=== PATIENT | male | born 1945 | race Caucasian/White ===

== ENCOUNTER 2020-05-20 09:41 | Outpatient (REF) | payer MEDICARE, SELFPAY ==
[2020-05-20 10:54] LABS: MANUAL DIFF FLAG NO
[2020-05-20 11:01] LABS: Basophils Absolute Auto 0.1 X10*3/uL (0.0-0.2); Basophils Percent Auto 0.6 % (0-2); Eosinophils Absolute Auto 0.2 X10*3/uL (0.0-0.4); Eosinophils Percent Auto 2.2 % (0-4); Hematocrit 51.8 % (42-52); Imm Gran Abs Auto 0.03 X10*3/uL (0.00-0.03); Imm Gran Pct Auto 0.3 % (0.0-0.4); Lymphocytes Absolute Auto 1.8 X10*3/uL (1.2-4.9); Lymphocytes Percent Auto 20.4 % (20-40); Mean Corpuscular HGB Conc 30.9 g/dl (31.0-36.0); Mean Corpuscular Hemoglobin 29.8 pg (27.0-33.0); Mean Corpuscular Volume 96.5 fL (80-98); Mean Platelet Volume 11.5 fL (9.4-12.4); Monocytes Absolute Auto 0.6 X10*3/uL (0.1-1.2); Monocytes Percent Auto 6.5 % (2-11); Neutrophils Absolute Auto 6.2 X10*3/uL (2.0-8.3); Platelet Count 226 X10*3/uL (160-400); Red Blood Count 5.37 X10*6/uL (4.60-5.80); White Blood Count 8.9 X10*3/uL (4.8-10.8)
[2020-05-20 11:25] LABS: Alanine Aminotransferase 27 U/L (0-40); Albumin Level 3.8 g/dL (3.5-5.0); Alkaline Phosphatase 84 U/L (39-117); Anion Gap 16 (12-20); Aspartate Amino Transferase 21 U/L (5-37); Bilirubin Total 0.5 mg/dL (0.0-1.0); Blood Urea Nitrogen 10 mg/dL (9-16); Calcium 8.7 mg/dL (8.4-10.2); Carbon Dioxide 31 mmol/L (22-29); Chloride 98 mmol/L (96-108); Estimated Glomerular Filt Rate > 60; Glucose Random 133 mg/dL (60-115); Potassium 4.5 mmol/L (3.3-5.1); Sodium 140 mmol/L (135-145); Total Protein 7.6 g/dL (6.5-8.0)
[2020-05-22 18:06] LABS: TS Negative Control Passed; TS Panel A 0; TS Panel B 0; TS Positive Control Passed; TSpotTB Negative (SeeBelow)
== END 2020-05-20 09:42 | disposition home or self-care (01) ==
LOC: HO.LAB 09:41
PROVIDERS: PCP Nurse Practitioner Family; Visit Provider Dermatology
DX: L40.0 Psoriasis vulgaris (principal)
CPT/HCPCS: 36415; 80053; 85025; 86481

== ENCOUNTER 2020-06-21 10:02 | Outpatient (REF) | payer MEDICARE, SELFPAY ==
[2020-06-21 11:51] LABS: Alanine Aminotransferase 33 U/L (0-40); Albumin Level 3.8 g/dL (3.5-5.0); Alkaline Phosphatase 91 U/L (39-117); Anion Gap 13 (12-20); Aspartate Amino Transferase 27 U/L (5-37); Bilirubin Total 0.6 mg/dL (0.0-1.0); Blood Urea Nitrogen 10 mg/dL (9-16); Calcium 8.8 mg/dL (8.4-10.2); Carbon Dioxide 34 mmol/L (22-29); Chloride 99 mmol/L (96-108); Cholesterol 170 mg/dL; Estimated Glomerular Filt Rate > 60; Glucose Fasting 143 mg/dL (60-99); HDL Cholesterol 36 mg/dL; LDL Cholesterol Calculated 116 mg/dl; Potassium 4.8 mmol/L (3.3-5.1); Sodium 141 mmol/L (135-145); Total Protein 7.7 g/dL (6.5-8.0); Triglycerides 93 mg/dL
[2020-06-21 12:15] LABS: Prostate Specific Antigen Scr 3.92 ng/mL (<0.05-4.0); TSH reflex Free T4 2.03 uIU/mL (0.32-4.0)
== END 2020-06-21 10:03 | disposition home or self-care (01) ==
LOC: HO.HMGCLDS 10:02
PROVIDERS: PCP Nurse Practitioner Family; Visit Provider Nurse Practitioner Family
DX: Z13.89 Encounter for screening for other disorder (principal)
CPT/HCPCS: 36415; 80053; 80061; 84153; 84443

== ENCOUNTER 2020-06-22 11:39 | Inpatient (IN) | payer MEDICARE, SELFPAY ==
[2020-06-22] VITALS (8 sets, daily range): BP systolic 105–145; BP diastolic 51–82; PULSE 75–96; RESP 18–26; TEMP 36.6–37; O2SAT 85–96; BMI 45.9; BMI 46.8
--- NOTE | ~2020-06-22 | XR_ITS ---
EXAMINATION: BILATERAL LOWER LEG X-RAY CLINICAL INFORMATION: Redness. Evaluate for osteomyelitis. COMPARISON: Bilateral knee x-ray January 2015 TECHNIQUE: 2 views of each lower leg FINDINGS: Bone alignment is normal. No fracture or dislocation or x-ray evidence of osteomyelitis is seen. The joint spaces are normal. Bilateral calcaneal spurs. Soft tissues are otherwise normal. XR/XR tibia fibula LT 2V IMPRESSION: No evidence of osteomyelitis.
--- NOTE | ~2020-06-22 | XR_ITS ---
EXAMINATION: XR CHEST CLINICAL INFORMATION: SOB. COMPARISON: None. TECHNIQUE: Frontal view of the chest was obtained. FINDINGS: The lungs are well expanded with plate-like atelectasis in the lingula. The heart size and pulmonary vascularity are normal. Bone windows reveal old healed fractures right posterior 5th and 6th ribs. No additional bony abnormality seen.. XR/XR chest 1V IMPRESSION: Plate-like atelectasis in the lingula. The lungs are otherwise clear. Mild cardiomegaly.
--- NOTE | ~2020-06-22 | CT_ITS ---
EXAMINATION: CT ANGIOGRAM OF THE CHEST WITH AND WITHOUT CONTRAST (CT PULMONARY ANGIOGRAM FOR PE) CLINICAL INFORMATION: Reason for Exam hypoxic. PE? Pneumonia? COMPARISON: Chest x-ray of same day TECHNIQUE: Prior to contrast administration, noncontrast localization images were obtained. Subsequently, multidetector volumetric imaging was performed from the thoracic inlet to below the diaphragms following the administration of 71 mL Omnipaque 350 intravenous contrast. No contrast reaction reported Sagittal, coronal, and MIP oblique sagittal reformatted images were obtained on the CT workstation, uploaded to PACS, and reviewed. This CT examination was performed using dose optimization techniques as appropriate, variously including the following: *Automated exposure control *Adjustment of mA and/or kV according to patient size (this includes techniques or standardized protocols for targeted exams where dose is matched to indication/reason for exam; i.e. extremities or head) *Use of iterative reconstruction technique Total exam dose-length product 489 mGy-cm FINDINGS: QUALITY OF STUDY/CONTRAST BOLUS: Satisfactory. PULMONARY ARTERIES: No central or segmental pulmonary emboli. THORACIC AORTA: No aneurysm or dissection. There is small amount of nonocclusive calcified plaque in the aortic arch. LUNG: Central airways are patent. There is some bronchial wall thickening seen without evidence of bronchiectasis. No confluent parenchymal disease. No suspicious lung nodules noted. PLEURA: No pleural effusion or pneumothorax. MEDIASTINUM: Normal heart size. No pericardial effusion. No hilar or mediastinal lymphadenopathy. No evidence of septal bowing or right heart strain. Coronary artery calcification present. CHEST WALL/AXILLA: No axillary or internal mammary lymphadenopathy. OSSEOUS STRUCTURES: No suspicious destructive bony lesion identified. There are old healed right rib fractures seen. There is multilevel degenerative disc disease seen with marginal spurring within the thoracic spine. UPPER ABDOMEN: Unremarkable. No reflux of contrast into the hepatic veins to suggest elevated right heart pressures. CT/CT angio chest PE protocol IMPRESSION: No evidence of acute pulmonary artery embolus. No evidence of thoracic aortic aneurysm or dissection. No confluent parenchymal disease identified. VTE: negative
--- NOTE | ~2020-06-22 | XR_ITS ---
EXAMINATION: BILATERAL LOWER LEG X-RAY CLINICAL INFORMATION: Redness. Evaluate for osteomyelitis. COMPARISON: Bilateral knee x-ray January 2015 TECHNIQUE: 2 views of each lower leg FINDINGS: Bone alignment is normal. No fracture or dislocation or x-ray evidence of osteomyelitis is seen. The joint spaces are normal. Bilateral calcaneal spurs. Soft tissues are otherwise normal. XR/XR tibia fibula RT 2V IMPRESSION: No evidence of osteomyelitis.
--- NOTE | ~2020-06-22 | US_ITS ---
EXAMINATION: US VENOUS ULTRASOUND WITH DOPPLER LOWER EXTREMITY, BILATERAL CLINICAL INFORMATION: Bilateral leg edema COMPARISON: September 21, 2008 TECHNIQUE: Ultrasound of the deep veins is performed from the hip to the calf with compression sonography and color and pulse Doppler assessment. Spectral analysis with color-flow imaging is performed. FINDINGS: RIGHT: There is normal venous compression and respiratory variation and augmented flow. The visualized common femoral vein, superficial femoral vein, profunda femoral vein, popliteal vein, and the trifurcation region shows no evidence of deep venous thrombosis. There is no significant popliteal fossa cyst. No popliteal artery aneurysm. LEFT: There is normal venous compression and respiratory variation and augmented flow. The visualized common femoral vein, superficial femoral vein, profunda femoral vein, popliteal vein, and the trifurcation region shows no evidence of deep venous thrombosis. There is no significant popliteal fossa cyst. No popliteal artery aneurysm. If the patient's symptoms persist, followup ultrasound in 5 days 7 days might be of value to exclude proximal propagation from a non-visualized calf vein. US/US venous duplex LE BI IMPRESSION: No acute DVT demonstrated in the bilateral lower extremity.
--- NOTE | 2020-06-22 12:20 | ECG_ITS ---
Test Reason : DIFF BREATHING Blood Pressure : / mmHG Vent. Rate : 089 BPM Atrial Rate : 089 BPM P-R Int : 178 ms QRS Dur : 128 ms QT Int : 388 ms P-R-T Axes : 058 245 -05 degrees QTc Int : 472 ms Normal sinus rhythm Right bundle branch block Inferior infarct , age undetermined Anterolateral infarct , age undetermined Abnormal ECG No previous ECGs available Referred By: Chi Blanco Electronically Signed By:CAMRYN BONNER MD
--- NOTE | 2020-06-22 12:38 | ED.GENADULT ---
HPI - General Adult General Chief complaint: Extremity Injury, Lower Stated complaint: leg infection Time Seen by Provider: 06/22/20 12:14 Source: patient Mode of arrival: ambulatory Limitations: no limitations History of Present Illness HPI narrative: Patient presents to ED for multiple complaints. Patient 1st complaint is lower extremity swelling with redness. Patient states left leg is more swollen with redness, warmth and pain. Patient states also having shortness of breath for the past 3 months. Patient states when he sleeps at night all the swelling he gets up gasping for breath. Patient states only sleep for 3 hours. Patient admits to being morbidly obese. Related Data Home Medications Medication Instructions Recorded Confirmed colchicine 0.6 mg tablet 0 mg PO 06/21/20 folic acid 1 mg tablet 1 mg PO DAILY 06/21/20 06/22/20 methotrexate sodium 2.5 mg tablet 20 mg PO QWEEK 06/21/20 06/22/20 Allergies Allergy/AdvReac Type Severity Reaction Status Date / Time aspirin Allergy Unknown Unverified 09/11/19 00:00 azithromycin Allergy Unknown Unverified 09/11/19 00:00 Review of Systems Review of Systems: Yes all other systems are reviewed and are negative Constitutional: Constitutional: Reports as per HPI and Reports no additional constitutional complaints Eyes: Eyes: Reports as per HPI and Reports no additional eye complaints ENT: Reports system reviewed and no additional complaints, except as documented and Reports as per HPI Cardiovascular: Cardiovascular: Reports as per HPI, Reports no additional cardiovascular complaints, Denies chest pain and Reports dyspnea Respiratory: Respiratory: Reports as per HPI, Reports no additional respiratory complaints and Reports dyspnea Gastrointestinal: Gastrointestinal: Reports as per HPI and Reports no additional gastrointestinal complaints Genitourinary: Genitourinary: Reports no additional male genitourinary complaints and Reports as per HPI Musculoskeletal: Musculoskeletal: Reports no additional musculoskeletal complaints and Reports as per HPI Comments: Left leg swelling and redness Neurologic: Reports system reviewed and no additional complaints, except as documented and Reports as per HPI Psychiatric: Psychiatric: Reports no additional psychiatric complaints and Reports as per HPI PMFSH Past Medical History Medical History (Updated 06/22/20 @ 20:36 by SOFÍA Hardin) Cellulitis Foot injury Gout High cholesterol Obesity SOB (shortness of breath) Surgical History (Updated 06/22/20 @ 11:51 by Nya eRyes) H/O abdominal surgery Social History Social History Alcohol intake: current Alcohol intake frequency: 0-2 drinks per day Smoking Status: Current every day smoker Use of substances other than those prescribed or required for medical reasons: No Advance Directives: No Advance Directives Information Provided: No Physical Exam Vital Signs: Vital Signs: Last Vital Signs Temp 98.6 F 06/22/20 17:59 Pulse 96 06/22/20 19:42 Resp 18 06/22/20 19:42 BP 122/82 06/22/20 19:42 Pulse Ox 94 06/22/20 19:42 Body Mass Index 45.9 Const: General: cooperative, healthy appearing, comfortable, no acute distress, well developed, alert, awake and Physically active Orientation/consciousness: patient oriented x3 HENMT: Head: Yes normal to inspection, Yes No palpable skull fracture present, Yes normocephalic, Yes atraumatic and Yes abrasion Eyes: General: appearance normal, both eyes and all related structures Neck: Neck: Yes normal visual inspection, Yes full ROM, Yes no lymphadenopathy, Yes no meningeal signs, Yes trachea midline, Yes supple and No tender Chest: Chest palpation & inspection: normal inspection of the chest and normal palpation of entire chest wall Resp: Effort & Inspection: normal respiratory effort and able to speak in complete sentences Auscultation: clear to auscultation bilaterally Cardio: Jugular venous distension: no JVD Heart sounds: S1 normal heart sound present and S2 normal heart sound present GI: Inspection: Yes normal to inspection and No abdominal wall ecchymosis Palpation (GI): Soft to palpation, not firm, nontender, no guarding and not rigid : General: No CVA tenderness and Yes no CVA tenderness Back/Spine/Pelvis: Back: no CVA tenderness, No CVA tenderness and No back tenderness Skin: Other: Psoriasis vulgaris General skin exam: no rashes or lesions noted and elasticity normal Neuro: General: patient oriented x3, no meningeal signs and CN's II-XI intact bilaterally Cranial nerves: Yes CN's II-XII intact bilaterally Extrem: Other: Left lower extremity: Positive for redness warmth and tenderness on anterior aspect of left leg. Left leg is swollen. Negative for calf tenderness. Vascular/Neuro/motor exam intact Right lower extremity; positive for redness/warmth/tenderness also on the right leg. Defer calf tenderness. Vascular/stenosis motor exam intact Psych: Appearance: grossly normal, well kempt and not disheveled Course Course Course Narrative: Lower extremities both indicate cellulitis. Will do labs including ESR CRP. Will do lactic and blood culture. Will send patient for chest x-ray and COVID-19 swab. Will do bilateral lower extremity ultrasounds. Patient is on 3 L oxygen at 90%. Patient high candidate for CTA to see if there is PE or pneumonia. Chest x-ray ordered. EKG negative for STEMI. Reevaluation(s) Reevaluation #1: Patient's lower extremity x-rays negative for osteomyelitis or blood clots. COVID swab came back negative. Patient does not have elevated white blood cell count. Patient had elevated ESR/CRP. Reason for chest CT to see patient has pneumonia to see which antibiotic to cover for pneumonia and skin infection. Patient will be admitted. Reevaluation #2: Chest CT negative for PE or pneumonia. Troponin negative. BNP does not indicate CHF. No reason why patient is hypoxic. COVID cell came back negative. Patient accepted by hospitalist for admission for cellulitis bilaterally of extremities. Dr. Beal recommended ABG. ABG was ordered. Waiting for results. Patient not septic. Time: 20:35 Medical Decision Making MDM Narrative Medical decision making narrative: Hypoxia. Cellulitis Lab Data Result diagrams: 06/22/20 12:44 06/22/20 12:43 Labs: Lab Results 06/22/20 06/22/20 06/22/20 Range/Units 12:43 12:43 12:43 WBC (4.8-10.8) X10*3/uL RBC (4.60-5.80) X10*6/uL Hgb (14.0-18.0) g/dl Hct (42-52) % MCV (80-98) fL MCH (27.0-33.0) pg MCHC (31.0-36.0) g/dl RDW (11.0-16.0) % Plt Count (160-400) X10*3/uL MPV (9.4-12.4) fL Immature Gran % (Auto) (0.0-0.4) % Neut % (Auto) (45-73) % Lymph % (Auto) (20-40) % [place] % (Auto) (2-11) % Eos % (Auto) (0-4) % Baso % (Auto) (0-2) % Lymph # (Auto) (1.2-4.9) X10*3/uL [place] # (Auto) (0.1-1.2) X10*3/uL Eos # (Auto) (0.0-0.4) X10*3/uL Baso # (Auto) (0.0-0.2) X10*3/uL Abs Immat Gran (auto) (0.00-0.03) X10*3/uL Absolute Neuts (auto) (2.0-8.3) X10*3/uL Absolute Nucleated RBC (0.0-0.012) X10*3/uL Nucleated RBC % (auto) (0.0-0.2) /100WBC ESR 16 H (0-15) MM/HR PT 13.7 H (10.8-13.0) SEC INR 1.2 H (0.9-1.1) APTT 32.4 (24.1-38.0) SEC Sodium 140 (135-145) mmol/L Potassium 4.4 (3.3-5.1) mmol/L Chloride 101 (96-108) mmol/L Carbon Dioxide 33 H (22-29) mmol/L Anion Gap 10 L (12-20) BUN 10 (9-16) mg/dL Creatinine 0.80 (0.5-1.4) mg/dL Estim Creat Clear Calc 101.1 Estimated GFR > 60 Random Glucose 185 H D (60-115) mg/dL Lactic Acid (0.5-2.0) mmol/L Calcium 8.5 (8.4-10.2) mg/dL Ferritin (20-250) ng/mL Total Bilirubin 0.4 (0.0-1.0) mg/dL AST 25 (5-37) U/L ALT 32 (0-40) U/L Alkaline Phosphatase 84 (39-117) U/L Lactate Dehydrogenase 172 (118-273) U/L Troponin I High Sens (<3.5-35.0) ng/L C-Reactive Protein 4.00 H (< or = 0.50) mg/dL B-Natriuretic Peptide (<100) pg/mL Total Protein 7.0 (6.5-8.0) g/dL Albumin 3.5 (3.5-5.0) g/dL Procalcitonin ng/mL Coronavirus (PCR) (Negative) Influenza Type A (PCR) (Negative) Influenza Type B (PCR) (Negative) RSV RNA Qual (PCR) (Negative) 06/22/20 06/22/20 06/22/20 Range/Units 12:43 12:43 12:43 WBC (4.8-10.8) X10*3/uL RBC (4.60-5.80) X10*6/uL Hgb (14.0-18.0) g/dl Hct (42-52) % MCV (80-98) fL MCH (27.0-33.0) pg MCHC (31.0-36.0) g/dl RDW (11.0-16.0) % Plt Count (160-400) X10*3/uL MPV (9.4-12.4) fL Immature Gran % (Auto) (0.0-0.4) % Neut % (Auto) (45-73) % Lymph % (Auto) (20-40) % [place] % (Auto) (2-11) % Eos % (Auto) (0-4) % Baso % (Auto) (0-2) % Lymph # (Auto) (1.2-4.9) X10*3/uL [place] # (Auto) (0.1-1.2) X10*3/uL Eos # (Auto) (0.0-0.4) X10*3/uL Baso # (Auto) (0.0-0.2) X10*3/uL Abs Immat Gran (auto) (0.00-0.03) X10*3/uL Absolute Neuts (auto) (2.0-8.3) X10*3/uL Absolute Nucleated RBC (0.0-0.012) X10*3/uL Nucleated RBC % (auto) (0.0-0.2) /100WBC ESR (0-15) MM/HR PT (10.8-13.0) SEC INR (0.9-1.1) APTT (24.1-38.0) SEC Sodium (135-145) mmol/L Potassium (3.3-5.1) mmol/L Chloride (96-108) mmol/L Carbon Dioxide (22-29) mmol/L Anion Gap (12-20) BUN (9-16) mg/dL Creatinine (0.5-1.4) mg/dL Estim Creat Clear Calc Estimated GFR Random Glucose (60-115) mg/dL Lactic Acid 1.4 (0.5-2.0) mmol/L Calcium (8.4-10.2) mg/dL Ferritin 62 (20-250) ng/mL Total Bilirubin (0.0-1.0) mg/dL AST (5-37) U/L ALT (0-40) U/L Alkaline Phosphatase (39-117) U/L Lactate Dehydrogenase Cancelled (118-273) U/L Troponin I High Sens 9.2 (<3.5-35.0) ng/L C-Reactive Protein (< or = 0.50) mg/dL B-Natriuretic Peptide 48 (<100) pg/mL Total Protein (6.5-8.0) g/dL Albumin (3.5-5.0) g/dL Procalcitonin ng/mL Coronavirus (PCR) (Negative) Influenza Type A (PCR) (Negative) Influenza Type B (PCR) (Negative) RSV RNA Qual (PCR) (Negative) 06/22/20 06/22/20 06/22/20 Range/Units 12:43 12:44 12:44 WBC 8.6 (4.8-10.8) X10*3/uL RBC 5.24 (4.60-5.80) X10*6/uL Hgb 15.6 (14.0-18.0) g/dl Hct 50.8 (42-52) % MCV 96.9 (80-98) fL MCH 29.8 (27.0-33.0) pg MCHC 30.7 L (31.0-36.0) g/dl RDW 14.5 (11.0-16.0) % Plt Count 214 (160-400) X10*3/uL MPV 10.5 (9.4-12.4) fL Immature Gran % (Auto) 0.2 (0.0-0.4) % Neut % (Auto) 70.4 (45-73) % Lymph % (Auto) 18.8 L (20-40) % [place] % (Auto) 7.6 (2-11) % Eos % (Auto) 2.5 (0-4) % Baso % (Auto) 0.5 (0-2) % Lymph # (Auto) 1.6 (1.2-4.9) X10*3/uL [place] # (Auto) 0.7 (0.1-1.2) X10*3/uL Eos # (Auto) 0.2 (0.0-0.4) X10*3/uL Baso # (Auto) 0.0 (0.0-0.2) X10*3/uL Abs Immat Gran (auto) 0.02 (0.00-0.03) X10*3/uL Absolute Neuts (auto) 6.1 (2.0-8.3) X10*3/uL Absolute Nucleated RBC 0.000 (0.0-0.012) X10*3/uL Nucleated RBC % (auto) 0.0 (0.0-0.2) /100WBC ESR (0-15) MM/HR PT (10.8-13.0) SEC INR (0.9-1.1) APTT (24.1-38.0) SEC Sodium (135-145) mmol/L Potassium (3.3-5.1) mmol/L Chloride (96-108) mmol/L Carbon Dioxide (22-29) mmol/L Anion Gap (12-20) BUN (9-16) mg/dL Creatinine (0.5-1.4) mg/dL Estim Creat Clear Calc Estimated GFR Random Glucose (60-115) mg/dL Lactic Acid (0.5-2.0) mmol/L Calcium (8.4-10.2) mg/dL Ferritin (20-250) ng/mL Total Bilirubin (0.0-1.0) mg/dL AST (5-37) U/L ALT (0-40) U/L Alkaline Phosphatase (39-117) U/L Lactate Dehydrogenase (118-273) U/L Troponin I High Sens (<3.5-35.0) ng/L C-Reactive Protein (< or = 0.50) mg/dL B-Natriuretic Peptide (<100) pg/mL Total Protein (6.5-8.0) g/dL Albumin (3.5-5.0) g/dL Procalcitonin 0.05 ng/mL Coronavirus (PCR) NEGATIVE (Negative) Influenza Type A (PCR) NEGATIVE (Negative) Influenza Type B (PCR) NEGATIVE (Negative) RSV RNA Qual (PCR) NEGATIVE (Negative) ECG Data Interpretation: Normal sinus rhythm. Right bundle-branch block. Ventricular rate 89. Pr interval 178. QRS 128. QTC 472. Negative STEMI Discharge Plan Discharge Clinical Impression: Hypoxia, Cellulitis Patient Disposition: Admitted As Inpatient
[2020-06-22 12:55] LABS: MANUAL DIFF FLAG NO
[2020-06-22 12:56] LABS: Basophils Percent Auto 0.5 % (0-2); Eosinophils Absolute Auto 0.2 X10*3/uL (0.0-0.4); Eosinophils Percent Auto 2.5 % (0-4); Hematocrit 50.8 % (42-52); Hemoglobin 15.6 g/dl (14.0-18.0); Imm Gran Abs Auto 0.02 X10*3/uL (0.00-0.03); Imm Gran Pct Auto 0.2 % (0.0-0.4); Lymphocytes Absolute Auto 1.6 X10*3/uL (1.2-4.9); Lymphocytes Percent Auto 18.8 % (20-40); Mean Corpuscular HGB Conc 30.7 g/dl (31.0-36.0); Mean Corpuscular Hemoglobin 29.8 pg (27.0-33.0); Mean Corpuscular Volume 96.9 fL (80-98); Mean Platelet Volume 10.5 fL (9.4-12.4); Monocytes Absolute Auto 0.7 X10*3/uL (0.1-1.2); Monocytes Percent Auto 7.6 % (2-11); Neutrophils Absolute Auto 6.1 X10*3/uL (2.0-8.3); Neutrophils Percent Auto 70.4 % (45-73); Platelet Count 214 X10*3/uL (160-400); Red Blood Count 5.24 X10*6/uL (4.60-5.80); Red Cell Distribution Width 14.5 % (11.0-16.0); White Blood Count 8.6 X10*3/uL (4.8-10.8)
[2020-06-22 13:02] LABS: INTERNATIONAL NORM RATIO 1.2 (0.9-1.1); Prothrombin Time 13.7 SEC (10.8-13.0)
[2020-06-22 13:05] LABS: Partial Thromboplastin Time 32.4 SEC (24.1-38.0)
[2020-06-22 13:19] LABS: Lactic Acid 1.4 mmol/L (0.5-2.0)
[2020-06-22 13:24] LABS: Alanine Aminotransferase 32 U/L (0-40); Albumin Level 3.5 g/dL (3.5-5.0); Alkaline Phosphatase 84 U/L (39-117); Anion Gap 10 (12-20); Aspartate Amino Transferase 25 U/L (5-37); Bilirubin Total 0.4 mg/dL (0.0-1.0); Blood Urea Nitrogen 10 mg/dL (9-16); Calcium 8.5 mg/dL (8.4-10.2); Carbon Dioxide 33 mmol/L (22-29); Chloride 101 mmol/L (96-108); Creatinine Clr Calc Pharmacy 101.1; Estimated Glomerular Filt Rate > 60; Glucose Random 185 mg/dL (60-115); Lactate Dehydrogenase 172 U/L (118-273); Potassium 4.4 mmol/L (3.3-5.1); Sodium 140 mmol/L (135-145)
[2020-06-22 13:30] LABS: B Type Natriuretic Peptide 48 pg/mL (<100); Troponin-I High Sensitivity 9.2 ng/L (<3.5-35.0)
[2020-06-22 13:37] LABS: Influenza A PCR NEGATIVE (Negative); Influenza B PCR NEGATIVE (Negative); Resp Syncy Virus RNA Qual PCR NEGATIVE (Negative); SARS COV2 PCR INHOUSE NEGATIVE (Negative)
[2020-06-22 13:43] LABS: Erythrocyte Sedimentation Rate 16 MM/HR (0-15)
[2020-06-22 13:45] LABS: Procalcitonin 0.05 ng/mL
[2020-06-22 14:08] LABS: Ferritin 62 ng/mL (20-250)
[2020-06-22] MEDS: Piperacillin Sodium/Tazobactam 3.375 GM in 0.9 % Sodium Chloride 50 ML IV (17:28)
[2020-06-22] MEDS: vancomycin HCL 1,500 MG in 0.9 % Sodium Chloride 500 ML 333.33 MG IV (17:55)
--- NOTE | 2020-06-22 20:04 | P.HPHOSP_ITS ---
History of Present Illness Date of Service: 06/22/20 Chief Complaint: Leg Swelling/redness 74-year-old male with a past medical history of hyperlipidemia, obesity, history of hearing loss, Psoriasis on methotrexate presented to the hospital with a chief complaint of bilateral leg pain redness and swelling over the past 3 days more on the left side. Also complains of shortness of breath for few days. Patient reports that he is not able to sleep well during the night and wakes up multiple times and feels tired during the daytime. Denies any cough or chest pain. Denies any palpitations headaches numbness tingling or focal weakness. Denies any GI or symptoms. Denies any fall or trauma. Review of all other systems is negative except mentioned above ER course: Per ER team patient noted to have bilateral lower extremity pain redness and swelling more on the left side; ultrasound showed no evidence of DVT. Patient was given vanc and Zosyn for cellulitis. Also noted patient was hypoxic to 84% on room air lungs are clear on examination no wheezing noticed. Patient was placed on supplemental oxygen at 5 L saturating at 93%. CT showed no evidence of PE or parenchymal disease. No evidence of fluid overload. Admitted to the hospital for further management. [facility] Medical History (Updated 06/23/20 @ 10:11 by Bryan Sales MD) Cellulitis Diabetes Fatty liver Foot injury Gout High cholesterol Mild bibasilar atelectasis Morbid obesity Obesity JACKIE (obstructive sleep apnea) SOB (shortness of breath) Surgical History H/O abdominal surgery Social History Household Members: Spouse Housing: House Do you presently have visiting nurse or other home services: No Alcohol intake: current Alcohol intake frequency: 0-2 drinks per day Smoking Status: Current every day smoker Smoked in Last 30 Days: Yes Patient Interested in Nicotine Replacement: No Patient Given Instructions on How to Stop Smoking: Yes Date Education Initiated: 06/23/20 Second Hand Smoke Exposure: Yes Use of substances other than those prescribed or required for medical reasons: No Currently Displaying Signs/Symptoms of Drug Intoxication Withdrawal: No Have you been hit, kicked, punched, or otherwise hurt by someone within the past year? If so, by whom?: No Do you feel safe in your current relationship?: No Is there a partner from a previous relationship who is making you feel unsafe now?: No Are you made to feel afraid or neglected: No Advance Directives: No Advance Directives Information Provided: No Advance Directives on File: No Do you have thoughts of harming others: None Do you have a plan to hurt others: No Plan Recently lost weight without trying: No service: No Current occupational status: retired Meds Allergies Allergy/AdvReac Type Severity Reaction Status Date / Time aspirin Allergy Unknown Unverified 09/11/19 00:00 azithromycin Allergy Unknown Unverified 09/11/19 00:00 Active Medications: Current Medications Generic Name Dose Route Start Last Admin Trade Name Freq PRN Reason Stop Dose Admin Acetaminophen 650 mg 06/22/20 19:16 Acetaminophen 325 Mg Tablet PO Q6H PRN Pain, Mild (Pain Scale 1-3) Docusate Sodium 100 mg 06/22/20 19:16 Docusate Sodium 100 Mg Capsule PO DAILY PRN Constipation Enoxaparin Sodium 40 mg 06/22/20 21:00 Enoxaparin Sodium 40 Mg/0.4 Ml Syringe SUBCUT Q24H SINA Vancomycin HCl 1,000 mg/ 270 mls @ 270 mls/hr 06/23/20 07:00 Sodium Chloride IV Q12H SINA Levalbuterol HCl 1.25 mg 06/22/20 20:00 Levalbuterol Hcl 1.25 Mg/0.5 Ml Vial.Neb INHALE RQ4H WHILE AWAKE SINA Morphine Sulfate 1 mg 06/22/20 19:19 Morphine Sulfate 4 Mg/Ml Cartridge IVPUSH Q4H PRN Pain, Severe (Pain Scale 7-10) Pharmacy Consult 1 each 06/22/20 19:20 Consult Rx Vancomycin Dosing MISCELLANE DAILY PRN Consult order Senna 17.2 mg 06/22/20 19:16 Sennosides 8.6 Mg Tablet PO BEDTIME PRN Constipation Sodium Chloride 3 ml 06/23/20 00:00 0.9 % Sodium Chloride Flush 3 Ml Syringe IVFLUSH QSHIFT [facility] Home Medications Medication Instructions Recorded Confirmed Last Taken Type colchicine 0.6 mg tablet 0 mg PO 06/21/20 Unknown History folic acid 1 mg tablet 1 mg PO DAILY 06/21/20 06/22/20 Unknown History methotrexate sodium 2.5 mg tablet 20 mg PO QWEEK 06/21/20 06/22/20 Unknown History Physical Exam Vital Signs and Narrative: Vital Signs: Last Vital Signs Temp 98.6 F 06/22/20 17:59 Pulse 96 06/22/20 19:42 Resp 18 06/22/20 19:42 BP 122/82 06/22/20 19:42 Pulse Ox 94 06/22/20 19:42 Body Mass Index 45.9 Gen: Appears be in no acute distress HEENT: NCAT, Moist mucosa. Pulmonary: Vesicular breath sounds, fair air entry CVS: Normal S1-S2 Abdomen: BS+, Soft, Nontender Extremities: Warm well perfused Neuro: Alert and awake. Results Labs CBC and Chem 7: 06/23/20 05:43 06/23/20 05:43 Labs: Laboratory Results - last 24 hr 06/22/20 06/22/20 06/22/20 12:43 12:43 12:43 MCV MCH MCHC RDW Plt Count MPV Immature Gran % (Auto) Neut % (Auto) Lymph % (Auto) [place] % (Auto) Eos % (Auto) Baso % (Auto) Lymph # (Auto) [place] # (Auto) Eos # (Auto) Baso # (Auto) Abs Immat Gran (auto) Absolute Neuts (auto) Absolute Nucleated RBC Nucleated RBC % (auto) ESR 16 H PT 13.7 H INR 1.2 H APTT 32.4 Anion Gap 10 L Estim Creat Clear Calc 101.1 Estimated GFR > 60 Random Glucose 185 H D Lactic Acid Calcium 8.5 Ferritin Total Bilirubin 0.4 AST 25 ALT 32 Alkaline Phosphatase 84 Lactate Dehydrogenase 172 Troponin I High Sens C-Reactive Protein 4.00 H B-Natriuretic Peptide Total Protein 7.0 Albumin 3.5 Procalcitonin Coronavirus (PCR) Influenza Type A (PCR) Influenza Type B (PCR) RSV RNA Qual (PCR) 06/22/20 06/22/20 06/22/20 12:43 12:43 12:43 MCV MCH MCHC RDW Plt Count MPV Immature Gran % (Auto) Neut % (Auto) Lymph % (Auto) [place] % (Auto) Eos % (Auto) Baso % (Auto) Lymph # (Auto) [place] # (Auto) Eos # (Auto) Baso # (Auto) Abs Immat Gran (auto) Absolute Neuts (auto) Absolute Nucleated RBC Nucleated RBC % (auto) ESR PT INR APTT Anion Gap Estim Creat Clear Calc Estimated GFR Random Glucose Lactic Acid 1.4 Calcium Ferritin 62 Total Bilirubin AST ALT Alkaline Phosphatase Lactate Dehydrogenase Cancelled Troponin I High Sens 9.2 C-Reactive Protein B-Natriuretic Peptide 48 Total Protein Albumin Procalcitonin Coronavirus (PCR) Influenza Type A (PCR) Influenza Type B (PCR) RSV RNA Qual (PCR) 06/22/20 06/22/20 06/22/20 12:43 12:44 12:44 MCV 96.9 MCH 29.8 MCHC 30.7 L RDW 14.5 Plt Count 214 MPV 10.5 Immature Gran % (Auto) 0.2 Neut % (Auto) 70.4 Lymph % (Auto) 18.8 L [place] % (Auto) 7.6 Eos % (Auto) 2.5 Baso % (Auto) 0.5 Lymph # (Auto) 1.6 [place] # (Auto) 0.7 Eos # (Auto) 0.2 Baso # (Auto) 0.0 Abs Immat Gran (auto) 0.02 Absolute Neuts (auto) 6.1 Absolute Nucleated RBC 0.000 Nucleated RBC % (auto) 0.0 ESR PT INR APTT Anion Gap Estim Creat Clear Calc Estimated GFR Random Glucose Lactic Acid Calcium Ferritin Total Bilirubin AST ALT Alkaline Phosphatase Lactate Dehydrogenase Troponin I High Sens C-Reactive Protein B-Natriuretic Peptide Total Protein Albumin Procalcitonin 0.05 Coronavirus (PCR) NEGATIVE Influenza Type A (PCR) NEGATIVE Influenza Type B (PCR) NEGATIVE RSV RNA Qual (PCR) NEGATIVE Imaging Radiologist's Impressions: Impressions Chest X-Ray 06/22/20 12:20 IMPRESSION: Plate-like atelectasis in the lingula. The lungs are otherwise clear. Mild cardiomegaly. Venous Duplex 06/22/20 12:20 IMPRESSION: No acute DVT demonstrated in the bilateral lower extremity. Chest CTA 06/22/20 13:50 IMPRESSION: No evidence of acute pulmonary artery embolus. No evidence of thoracic aortic aneurysm or dissection. No confluent parenchymal disease identified. VTE: negative Tibia/Fibula X-Ray 06/22/20 13:50 IMPRESSION: No evidence of osteomyelitis. Tibia/Fibula X-Ray 06/22/20 13:50 IMPRESSION: No evidence of osteomyelitis. Assessment and Plan (1) Shortness of breath: Status: Acute 74-year-old male with a past medical history of hyperlipidemia, obesity, hearing impairment, gout, psoriasis on methotrexate presented to the hospital with the complaint of bilateral leg pain redness and swelling and shortness of breath. Noted to have cellulitis. Bilateral lower extremity cellulitis: Continue IV vancomycin. Duplex negative for DVT. Id consult. Hypoxia: Patient currently saturating 93-95% on supplemental oxygen at 5 L of nasal cannula. Not in respiratory distress. Lung sounds are clear. nebs p.r.n.. CT scan showed no evidence of pulmonary embolism, lung disease or fluid overload. Question CHF versus JACKIE versus pulmonary hypertension vs methotrexate related Will obtain echocardiogram. Pulmonary consult for further recommendations Recommended outpatient sleep studies and pulmonary function test. EKG nonischemic. Troponin negative. Cycle cardiac enzymes. Monitor on telemetry. Continuous pulse ox. Will also obtain hemoglobin A1c, lipid profile, TSH. History of psoriasis: Hold home methotrexate for now until further input from pulmonology. DVT prophylaxis: Lovenox Code status: Full code
[2020-06-22 21:36] LABS: Thyroid Stimulating Hormone 1.87 uIU/mL (0.32-4.0)
[2020-06-22] MEDS: Enoxaparin Sodium 40 MG/0.4 ML SYRINGE SUBCUT (21:40)
--- NOTE | 2020-06-22 22:52 | PC.NURSE ---
REPORT GIVEN TO FLOOR. PT IN NAD. PT RESTING, WAKES TO VOICE AND DENIES COMPLAINTS AT THIS TIME.
[2020-06-23] VITALS (10 sets, daily range): BP systolic 109–151; BP diastolic 6–87; PULSE 75–94; RESP 16–18; TEMP 36.4–37.2; O2SAT 85–94
[2020-06-23] MEDS: 0.9 % Sodium Chloride Flush 3 ML SYRINGE IVFLUSH ×3 (01:39→20:39)
[2020-06-23 06:37] LABS: MANUAL DIFF FLAG NO
[2020-06-23 06:52] LABS: Basophils Percent Auto 0.5 % (0-2); Eosinophils Absolute Auto 0.2 X10*3/uL (0.0-0.4); Eosinophils Percent Auto 2.8 % (0-4); Hematocrit 49.2 % (42-52); Hemoglobin 14.9 g/dl (14.0-18.0); Imm Gran Abs Auto 0.02 X10*3/uL (0.00-0.03); Imm Gran Pct Auto 0.3 % (0.0-0.4); Lymphocytes Absolute Auto 1.3 X10*3/uL (1.2-4.9); Lymphocytes Percent Auto 16.9 % (20-40); Mean Corpuscular HGB Conc 30.3 g/dl (31.0-36.0); Mean Corpuscular Hemoglobin 29.8 pg (27.0-33.0); Mean Corpuscular Volume 98.4 fL (80-98); Mean Platelet Volume 11.1 fL (9.4-12.4); Monocytes Absolute Auto 0.6 X10*3/uL (0.1-1.2); Monocytes Percent Auto 7.1 % (2-11); Neutrophils Absolute Auto 5.7 X10*3/uL (2.0-8.3); Neutrophils Percent Auto 72.4 % (45-73); Platelet Count 191 X10*3/uL (160-400); Red Cell Distribution Width 14.3 % (11.0-16.0); White Blood Count 7.9 X10*3/uL (4.8-10.8)
[2020-06-23] MEDS: vancomycin HCL 1,000 MG in 0.9 % Sodium Chloride 250 ML 270 MG IV (06:54)
[2020-06-23 07:27] LABS: Cholesterol 149 mg/dL; HDL Cholesterol 30 mg/dL; LDL Cholesterol Calculated 98 mg/dl; Triglycerides 106 mg/dL
[2020-06-23 07:29] LABS: Anion Gap 14 (12-20); Blood Urea Nitrogen 8 mg/dL (9-16); Calcium 8.1 mg/dL (8.4-10.2); Carbon Dioxide 30 mmol/L (22-29); Chloride 100 mmol/L (96-108); Creatinine Clr Calc Pharmacy 107.7; Estimated Glomerular Filt Rate > 60; Glucose Random 137 mg/dL (60-115); Potassium 4.9 mmol/L (3.3-5.1); Sodium 139 mmol/L (135-145)
[2020-06-23 07:52] LABS: Estimated Average Glucose 192 mg/dL; Hemoglobin A1c % 8.3 %
--- NOTE | 2020-06-23 08:00 | CA_ITS ---
Transthoracic Echocardiogram Patient (Last, First, Middle): Cody Moran L Gender: Male Date of : 1945 Age: 74 Procedure Date: 06/23/2020 Procedure Type: Transthoracic Echocardiogram Location: [facility] [place] Height: 165.1 cm Weight: 127.46 kg BSA: 2.29 m2 Heart Rate: bpm BP: 109 / 55 mmHg Pet Care Attendant: ASIA Campo MD: Channing Beal MD Teachers' Assistant: Driss Moulton MD Symptoms: ?CHF/Puilm HTN; p/w Hypoxia Study Quality: Technically Difficult/contrast ECG Rhythm: Sinus Conclusions: - 1. Technically extremely limited study despite use of definity contrast 2. Mildly reduced LV ejection fraction 45-50% with impaired relaxation filling pattern 3. Remainder of the cardiac chambers and valvular function not well evaluated on this study Findings Procedure Information Contrast agent, definity, is being given per protocol without apparent complications. Left Ventricle The left ventricle was not well visualized. Normal left ventricular cavity size. The left ventricular systolic function is mildly decreased. The visually estimated ejection fraction is between 45-50%. There is no evidence of regional wall motion abnormalities. Spectral Doppler is indicative of an impaired relaxation filling pattern. E/E prime ratio is between 8 and 15 consistent with indeterminate filling pressures. Right Ventricle The right ventricle was not well visualized. Atria The left atrium was not well visualized. Interatrial shunt cannot be excluded. The right atrium was not well visualized. Aortic Valve The aortic valve was not well visualized. There is no aortic valve stenosis. There is no aortic valve regurgitation. Mitral Valve The mitral valve was not well visualized. There is no mitral valve stenosis. Pulmonic Valve The pulmonic valve was not well visualized. Tricuspid Valve The tricuspid valve was not well visualized. The right ventricular systolic pressure is not calculated. Great Vessels The aorta was not well visualized. The pulmonary artery was not well visualized. Venous The inferior vena cava was not well visualized. Pericardium/Pleural The pericardium was not well visualized. Prior Study Comparison No significant change compared to prior study dated: 05/10/2017. Measurements 2D Linear Measurements IVSd: 1.09 0.6-0.9/0.6-1.0 cm LVIDd: 5.12 3.9-5.3/4.2-5.9 cm LVIDd Index: 2.24 2.4-3.2/2.2-3.1 cm/m2 LVIDs: 4.06 2.0-3.6 cm LVPWd: 1.07 0.7-1.1 cm Ao Root: 3.50 2.1-3.5 cm LA Diam: 3.30 2.7-3.8/3.0-4.0 cm LAIDs Index: 1.44 1.5-2.3 cm/m2 LV Mass: 261.68 67-162/88-224 g LV Mass Index: 114.27 43-95/49-115 g/m2 LVOT Diam: 2.20 3.0+(-)1.3 cm 2D Systolic Function EF 4C: 52.30 >55% EF 2C: 47.40 >55% EF BiP: 50.00 >55% Mitral Valve MV Pk E: 0.82 MV PK A: 0.99 MV Decel Time: 254.00 E/A: 0.80 E'Lateral: 8.32 E'Medial: 7.06 E/E' Med: 11.60 E/E' Lat: 9.90 PHT: 74.00 MVA PHT: 2.97 Decel Vance: 3.23 Aortic Valve AoV Pk Tj: 1.31 AoV Mn Tj: 0.93 AoV VTI: 0.27 AoV Pk Grad: 7.00 Aov Mn Grad: 4.00 ANANTH Cont.VTI: 2.99 LVOT LVOT Pk Tj: 0.98 LVOT Mn Tj: 0.64 LVOT VTI: 0.21 LVOT Pk Grad: 4.00 LVOT Mn Grad: 2.00 LVOT Diam: 2.20 LVOT Area: 3.80 Diastolic Function MV Pk E: 0.82 MV Pk A: 0.99 E/A: 0.80 E'Medial: 7.06 E/E' Med: 11.60 E' Laterial: 8.32 E/E' Lat: 9.90 Great Vessels Aorta Ao Root-2D: 3.50 2.0-3.7 cm Ao Asc: 3.80 2.1-3.4 cm Updated in Other Vendor System with Status of Final Driss Moulton MD electronically signed on 06/23/2020 12:27:10 PM with status of Final
--- NOTE | 2020-06-23 09:28 | PM.CNPUL ---
History of Present Illness History of Present Illness Consult date: 06/23/20 Reason for consult: hypoxemia Chief complaint: Hypoxia Narrative: This 74 years old gentleman has been admitted mainly because of cellulitis of his lower extremities. He was noted to have low O2 sat. Denies fever chills chest pain wheezing or cough. Patient does not have any past history of chronic lung disease. He has been morbidly obese for whole adult life. He claims that he cannot sleep on his back and usually sleeps on the right side. He did do express the the fact that he wakes up every few hours during the night because of difficulty in breathing. He has never been evaluated for sleep apnea. In fact he such as simple man he does not even know what we were talking about. Patient is being treated for chronic rheumatoid arthritis and is on methotrexate 20 mg Q 1 week along with folic acid and colchicine tablets. He denies smoking. Review of Systems Eyes: Eyes: Reports no additional eye complaints ENT: Reports system reviewed and no additional complaints, except as documented Cardiovascular: Cardiovascular: Reports no additional cardiovascular complaints and Denies dyspnea Respiratory: Respiratory: Denies cough, Denies dyspnea and Denies wheezing Gastrointestinal: Gastrointestinal: Reports no additional gastrointestinal complaints Musculoskeletal: Musculoskeletal: Reports back pain and Reports arthralgias Integumentary/Breasts: Skin/Breast: Reports erythema (of both legs ) Neurologic: Reports system reviewed and no additional complaints, except as documented Endocrine: Endocrine: Reports other (gross obesity) Allergic/Immunologic: Allergic/Immunologic: Denies wheezing PMFSH Past Medical History Medical History (Updated 06/23/20 @ 09:43 by Junie Adame MD) Cellulitis Foot injury Gout High cholesterol Mild bibasilar atelectasis Morbid obesity Obesity JACKIE (obstructive sleep apnea) SOB (shortness of breath) Surgical History Surgical History H/O abdominal surgery Social History Social History Household Members: Spouse Housing: House Do you presently have visiting nurse or other home services: No Alcohol intake: current Alcohol intake frequency: 0-2 drinks per day Smoking Status: Current every day smoker Smoked in Last 30 Days: Yes Patient Interested in Nicotine Replacement: No Patient Given Instructions on How to Stop Smoking: Yes Date Education Initiated: 06/23/20 Second Hand Smoke Exposure: Yes Use of substances other than those prescribed or required for medical reasons: No Currently Displaying Signs/Symptoms of Drug Intoxication Withdrawal: No Have you been hit, kicked, punched, or otherwise hurt by someone within the past year? If so, by whom?: No Do you feel safe in your current relationship?: No Is there a partner from a previous relationship who is making you feel unsafe now?: No Are you made to feel afraid or neglected: No Advance Directives: No Advance Directives Information Provided: No Advance Directives on File: No Do you have thoughts of harming others: None Do you have a plan to hurt others: No Plan Recently lost weight without trying: No Meds Allergies Allergy/AdvReac Type Severity Reaction Status Date / Time aspirin Allergy Unknown Unverified 09/11/19 00:00 azithromycin Allergy Unknown Unverified 09/11/19 00:00 Active Medications: Current Medications Generic Name Dose Route Start Last Admin Trade Name Freq PRN Reason Stop Dose Admin Acetaminophen 650 mg 06/22/20 19:16 Acetaminophen 325 Mg Tablet PO Q6H PRN Pain, Mild (Pain Scale 1-3) Docusate Sodium 100 mg 06/22/20 19:16 Docusate Sodium 100 Mg Capsule PO DAILY PRN Constipation Enoxaparin Sodium 40 mg 06/22/20 21:00 06/22/20 21:40 Enoxaparin Sodium 40 Mg/0.4 Ml Syringe SUBCUT 40 mg Q24H SINA Administration Levalbuterol HCl 1.25 mg 06/22/20 20:00 06/23/20 07:37 Levalbuterol Hcl 1.25 Mg/0.5 Ml Vial.Neb INHALE 1.25 mg RQ4H WHILE AWAKE SINA Administration Morphine Sulfate 1 mg 06/22/20 19:19 Morphine Sulfate 4 Mg/Ml Cartridge IVPUSH Q4H PRN Pain, Severe (Pain Scale 7-10) Senna 17.2 mg 06/22/20 19:16 Sennosides 8.6 Mg Tablet PO BEDTIME PRN Constipation Sodium Chloride 3 ml 06/23/20 00:00 06/23/20 09:04 0.9 % Sodium Chloride Flush 3 Ml Syringe IVFLUSH Not Given QSHIFT [facility] Home Medications Medication Instructions Recorded Confirmed Last Taken Type colchicine 0.6 mg tablet 0 mg PO 06/21/20 Unknown History folic acid 1 mg tablet 1 mg PO DAILY 06/21/20 06/22/20 Unknown History methotrexate sodium 2.5 mg tablet 20 mg PO QWEEK 06/21/20 06/22/20 Unknown History Physical Exam Vital Signs: Vital Signs: Last Vital Signs Temp 97.6 F 06/23/20 07:43 Pulse 90 06/23/20 07:43 Resp 18 06/23/20 07:43 BP 151/87 H 06/23/20 07:43 Pulse Ox 91 L 06/23/20 04:00 Body Mass Index 46.8 Const: General: comfortable, no acute distress, alert and awake Orientation/consciousness: patient oriented x3 HENMT: Head: Yes normal to inspection General nose exam: No nasal polyps present and No nasal discharge present Face and sinus: Yes sinuses nontender Mouth: oropharynx abnormals (VERY CROWDED , MALLAMPATTI CLASS 4 ) Throat: Yes posterior oropharynx normal Eyes: General: appearance normal, both eyes and all related structures Neck: Neck: Yes normal visual inspection, Yes no lymphadenopathy, Yes trachea midline, Yes no JVD and Yes other (NECK SIZE= 19 ) Thyroid: Thyroid normal Chest: Chest palpation & inspection: normal inspection of the chest and abnormal palpation of chest wall (CHEST WALL IS VERY THICK ) Resp: Other: BREATH SOUNDS ARE DIMINISHED ON BOTH SIDES ESPECIALLY OVER THE BASILAR AREAS. SEEMS TO HAVE SMALL LUNG VOLUMES. NO ADVENTITIOUS SOUNDS ARE HEARD Auscultation: no crackles and no wheezes Cardio: Palpation: PMI not normal (NOT PALPABLE) Rate: regular rate Rhythm: regular rhythm Heart sounds: Gallop heart sound present and Murmur heart sound present GI: Palpation (GI): Soft to palpation, nontender, No hepatosplenomegaly present, no masses and Other GI palpation findings present (GROSSLY OBESE ABDOMEN) Auscultation: normal bowel sounds Back/Spine/Pelvis: Thoracic/Lumbar Spine: thoracic and lumbar spine normal to inspection Skin: Rashes: rashes noted (HAS THE REDNESS OF BOTH LEGS ESPECIALLY ON THE LEFT SIDE) Neuro: General: patient oriented x3 and no focal motor deficits Cranial nerves: Yes CN's II-XII intact bilaterally Extrem: General: Yes normal to inspection, Yes no calf tenderness and Yes venous stasis dermatitis (CHRONIC STASIS EDEMA WITH STASIS DERMATITIS AND ACUTE REDNESS OF THE SKIN ) Psych: Speech and movement: Normal speech and movement present Results Laboratory Findings CBC and BMP: 06/23/20 05:43 04/29/21 05:43 ABG, PT/INR, D-dimer: PT/INR, D-dimer PT 13.7 SEC (10.8-13.0) H 06/22/20 12:43 INR 1.2 (0.9-1.1) H 06/22/20 12:43 Abnormal lab findings: Abnormal Labs 06/22/20 06/22/20 06/22/20 12:43 12:43 12:43 MCV MCHC Lymph % (Auto) ESR 16 H PT 13.7 H INR 1.2 H Carbon Dioxide 33 H Anion Gap 10 L BUN Random Glucose 185 H D Calcium C-Reactive Protein 4.00 H 06/22/20 06/23/20 06/23/20 12:44 05:43 05:43 MCV 98.4 H MCHC 30.7 L 30.3 L Lymph % (Auto) 18.8 L 16.9 L ESR PT INR Carbon Dioxide 30 H Anion Gap BUN 8 L Random Glucose 137 H Calcium 8.1 L C-Reactive Protein Assessment and Plan (1) Morbid obesity: Problem details: THIS PATIENT HAS LIVED HIS WHOLE ADULT LIFE WITH MORBID OBESITY. AFTER THE TREATMENT OF HIS ACUTE CELLULITIS FOR WHICH HE IS ADMITTED, HE WOULD NEED TO GO ON A WEIGHT REDUCTION PROGRAM Status: Acute (2) Cellulitis: Problem details: CELLULITIS BOTH LOWER EXTREMITIES, BEING TREATED Status: Acute (3) Hypoxia: Problem details: HYPOXEMIA OF WHICH THE PATIENT WAS NOT AWARE OF IS MOST LIKELY DUE TO BIBASILAR ATELECTASIS AND RELATIVE HYPOVENTILATION. CTA OF THE CHEST DOES NOT SHOW ANY PULMONARY EMBOLISM AND ALSO DOES NOT SHOW ANY EVIDENCE OF INTERSTITIAL LUNG DISEASE. FOR THE TIME BEING KEEP HIM ON OXYGEN 1 OR 2 L/MINUTE TO KEEP O2 SAT ABOVE 90%. Status: Acute (4) JACKIE (obstructive sleep apnea): Problem details: CLINICALLY THIS PATIENT HAS TYPICAL FEATURES OF SLEEP APNEA WITH A ROUND FACE VERY SHORT NECK AND MALLAMPATI CLASS 4. HE WOULD NEED TO HAVE A QUICK SLEEP TEST OUTPATIENT AND THIS IS AN TO BE STARTED ON CPAP THERAPY Status: Acute (5) Mild bibasilar atelectasis: Problem details: THIS IS DUE TO HIS GROSS OBESITY AND HYPOVENTILATION OF THE LOWER LOBES, WILL START HIM ON INCENTIVE SPIROMETRY Status: Acute
[2020-06-23] MEDS: Furosemide 40 MG/4 ML VIAL IVPUSH ×2 (10:01→17:22)
--- NOTE | 2020-06-23 10:07 | HO.PM.IMPN ---
Subjective Subjective Date of Service: 06/23/20 Interval History: severeal weeks of bilateral lower extremity edema, no fevers, no chills chronic sob, orthopnea Cardiovascular Cardiovascular: Reports no additional cardiovascular complaints Respiratory Respiratory: Reports no additional respiratory complaints Physical Exam Vital Signs: Vital Signs: Last Vital Signs Temp 97.6 F 06/23/20 07:43 Pulse 90 06/23/20 07:43 Resp 18 06/23/20 07:43 BP 151/87 H 06/23/20 07:43 Pulse Ox 91 L 06/23/20 04:00 Body Mass Index 46.8 General: AO X 3, no acute distress, morbidly obese, thick neck, Resp: diminished CVS: S1,S2,RRR GI: soft, non tender, non distended Neuro: motor grossly intact Psych: appropriate affect ext: bilateral lower extremity edema with mild erythema, appears more venous stasis than cellulitic Objective Data Current Medications Generic Name Dose Route Start Last Admin Trade Name Freq PRN Reason Stop Dose Admin Acetaminophen 650 mg 06/22/20 19:16 Acetaminophen 325 Mg Tablet PO Q6H PRN Pain, Mild (Pain Scale 1-3) Docusate Sodium 100 mg 06/22/20 19:16 Docusate Sodium 100 Mg Capsule PO DAILY PRN Constipation Enoxaparin Sodium 40 mg 06/22/20 21:00 06/22/20 21:40 Enoxaparin Sodium 40 Mg/0.4 Ml Syringe SUBCUT 40 mg Q24H SINA Administration Insulin Human Lispro 0 unit 06/23/20 11:30 Insulin Lispro 100 Unit/Ml 3 Ml Vial SUBCUT QIDACHS SINA Protocol Levalbuterol HCl 1.25 mg 06/22/20 20:00 06/23/20 07:37 Levalbuterol Hcl 1.25 Mg/0.5 Ml Vial.Neb INHALE 1.25 mg RQ4H WHILE AWAKE SINA Administration Morphine Sulfate 1 mg 06/22/20 19:19 Morphine Sulfate 4 Mg/Ml Cartridge IVPUSH Q4H PRN Pain, Severe (Pain Scale 7-10) Senna 17.2 mg 06/22/20 19:16 Sennosides 8.6 Mg Tablet PO BEDTIME PRN Constipation Sodium Chloride 3 ml 06/23/20 00:00 06/23/20 09:04 0.9 % Sodium Chloride Flush 3 Ml Syringe IVFLUSH Not Given QSHIFT SINA Labs CBC & Chem 7: 06/23/20 05:43 06/23/20 05:43 Assessment and Plan (1) Diabetes: Status: Acute (2) Fatty liver: Status: Acute Assessment and Plan: 74M presented with sob and lower extremity edema and erythema lower extremity edema and erythema bilateral without systemic symptoms, highly doubt infectious, most likely venous stasis with stasis dermatitis follow up cultures will dc antibiotics IV lasix courtney wraps morbid obesity with likely undiagnosed JACKIE/OHS/restrictive lung disease complicated by acute hypoxic respiratory failure incentive spirometer outpatient sleep study/pulm follow up weight loss fatty liver probably LONG outpatient follow up DM a1c 8.1 patient denies DM, but mentioned doctors previously told him he had sugar in his legs probably not a new diagnosis, but not on meds will cover with insulin and start metformin at discharge
--- NOTE | 2020-06-23 10:16 | MHC.CM.PN ---
IMM 06/23/20 Male 74 DX HYPOXIA Primary language is Divehi Pt lives with . He is independent. DP Home with CPAP. CM will follow for any change in dc needs
[2020-06-23 10:19] LABS: VBG Base Excess 7.6 mmol/L; VBG HCO3 36 mmol/L (22-26); VBG pCO2 66 mmHg; VBG pH 7.34 (7.32-7.43); VBG pO2 41 mmHg
[2020-06-23 10:22] LABS: Venous Blood Gas Refer to POC result
[2020-06-23 11:18] LABS: Glucose, Whole Blood 296 mg/dL (60-115)
[2020-06-23] MEDS: Insulin Lispro 100 UNIT/ML 3 ML VIAL SUBCUT ×2 (11:23→20:39)
[2020-06-23 16:12] LABS: Glucose, Whole Blood 104 mg/dL (60-115)
--- NOTE | 2020-06-23 17:53 | PC.NURSE ---
Around 1200, patient's O2 SAT 85%; applied 3L of O2 via NC to achieve O2 SAT of 90%. Around 1600, patient's O2 SAT 88%; increased O2 to 5L, patient placed on continuous O2 monitoring, now satting 91%. Patient's legs wrapped with courtney bandages per hospitalist. Patient's A1c 8%, now a POC and on sliding scale. Patient refused to sit in recliner, but sitting on edge of bed frequently.
[2020-06-23 20:03] LABS: Glucose, Whole Blood 173 mg/dL (60-115)
[2020-06-23] MEDS: Enoxaparin Sodium 40 MG/0.4 ML SYRINGE SUBCUT (20:39)
[2020-06-24] VITALS (7 sets, daily range): BP systolic 100–150; BP diastolic 50–83; PULSE 80–99; RESP 18–24; TEMP 21.8–37.2; O2SAT 83–97
[2020-06-24 06:08] LABS: MANUAL DIFF FLAG NO
[2020-06-24 06:13] LABS: Basophils Percent Auto 0.5 % (0-2); Eosinophils Absolute Auto 0.3 X10*3/uL (0.0-0.4); Eosinophils Percent Auto 3.2 % (0-4); Hematocrit 48.5 % (42-52); Hemoglobin 14.9 g/dl (14.0-18.0); Imm Gran Abs Auto 0.02 X10*3/uL (0.00-0.03); Imm Gran Pct Auto 0.2 % (0.0-0.4); Lymphocytes Absolute Auto 1.7 X10*3/uL (1.2-4.9); Lymphocytes Percent Auto 20.5 % (20-40); Mean Corpuscular HGB Conc 30.7 g/dl (31.0-36.0); Mean Corpuscular Hemoglobin 30.2 pg (27.0-33.0); Mean Corpuscular Volume 98.2 fL (80-98); Mean Platelet Volume 10.7 fL (9.4-12.4); Monocytes Absolute Auto 0.6 X10*3/uL (0.1-1.2); Monocytes Percent Auto 7.2 % (2-11); Neutrophils Absolute Auto 5.6 X10*3/uL (2.0-8.3); Neutrophils Percent Auto 68.4 % (45-73); Platelet Count 198 X10*3/uL (160-400); Red Blood Count 4.94 X10*6/uL (4.60-5.80); Red Cell Distribution Width 14.4 % (11.0-16.0); White Blood Count 8.1 X10*3/uL (4.8-10.8)
[2020-06-24 06:52] LABS: Vancomycin Trough < 3.0 mcg/mL (10.0-20.0)
[2020-06-24 06:56] LABS: Alanine Aminotransferase 20 U/L (0-40); Albumin Level 3.3 g/dL (3.5-5.0); Alkaline Phosphatase 74 U/L (39-117); Anion Gap 12 (12-20); Aspartate Amino Transferase 17 U/L (5-37); Bilirubin Direct 0.2 mg/dL (0.0-0.5); Bilirubin Total 0.6 mg/dL (0.0-1.0); Blood Urea Nitrogen 12 mg/dL (9-16); Calcium 8.1 mg/dL (8.4-10.2); Carbon Dioxide 36 mmol/L (22-29); Chloride 97 mmol/L (96-108); Estimated Glomerular Filt Rate > 60; Glucose Fasting 136 mg/dL (60-99); Magnesium 4.9 mg/dL (1.6-2.6); Sodium 141 mmol/L (135-145); Total Protein 6.7 g/dL (6.5-8.0)
[2020-06-24 07:14] LABS: Glucose, Whole Blood 142 mg/dL (60-115)
[2020-06-24] MEDS: Furosemide 40 MG/4 ML VIAL IVPUSH ×2 (08:56→17:12)
[2020-06-24] MEDS: 0.9 % Sodium Chloride Flush 3 ML SYRINGE IVFLUSH ×2 (08:56→17:12)
--- NOTE | 2020-06-24 10:30 | P.CONCA_ITS ---
History of Present Illness History of Present Illness Date of Service: 06/24/20 Requesting physician: Bryan Sales Consult reason: other (Low ejection fraction echocardiogram) Chief complaint: Hypoxia Narrative: We were consulted to see Cody in cardiology consultation today as echocardiogram showed mildly reduced LV systolic function. Echocardiogram was performed as patient admitted with hypoxemia. Echocardiogram shows LVEF of 45- 50% with markedly limited study due to his body habitus with limited evaluation of cardiac valvular structure. Patient admitted with bilateral lower extremity cellulitis and on evaluation found to have hypoxemia. Subsequent workup pressure bilateral atelectasis and with his significant obesity, truncal, there is high likelihood of Pickwickian syndrome with pulmonary restriction. He has been required oxygen therapy. He gets short of breath with minimal activity. However he does not have any worsening leg edema. No clear orthopnea PND reported. No chest pain no other cardiac symptoms. Review of Systems Constitutional: Constitutional: Reports no additional constitutional complaints Cardiovascular: Cardiovascular: Denies chest pain, Denies lightheadedness, Denies Loss of Consciousness, Denies palpitations and Reports dyspnea on exertion Respiratory: Respiratory: Reports no additional respiratory complaints and Reports dyspnea on exertion Gastrointestinal: Gastrointestinal: Reports no additional gastrointestinal complaints Genitourinary: Genitourinary: Reports no additional male genitourinary complaints Neurologic: Reports system reviewed and no additional complaints, except as documented Endocrine: Endocrine: Reports no additional endocrine complaints and Denies p alpitations PMFSH Past Medical History Medical History Cellulitis Diabetes Fatty liver Foot injury Gout High cholesterol Mild bibasilar atelectasis Morbid obesity Obesity JACKIE (obstructive sleep apnea) SOB (shortness of breath) Surgical History Surgical History H/O abdominal surgery Social History Social History Household Members: Spouse Housing: House Do you presently have visiting nurse or other home services: No Alcohol intake: current Alcohol intake frequency: 0-2 drinks per day Smoking Status: Current every day smoker Smoked in Last 30 Days: Yes Patient Interested in Nicotine Replacement: No Patient Given Instructions on How to Stop Smoking: Yes Date Education Initiated: 06/23/20 Second Hand Smoke Exposure: Yes Use of substances other than those prescribed or required for medical reasons: No Currently Displaying Signs/Symptoms of Drug Intoxication Withdrawal: No Have you been hit, kicked, punched, or otherwise hurt by someone within the past year? If so, by whom?: No Do you feel safe in your current relationship?: No Is there a partner from a previous relationship who is making you feel unsafe now?: No Are you made to feel afraid or neglected: No Advance Directives: No Advance Directives Information Provided: No Advance Directives on File: No Do you have thoughts of harming others: None Do you have a plan to hurt others: No Plan Recently lost weight without trying: No service: No Current occupational status: retired Meds Allergies Allergy/AdvReac Type Severity Reaction Status Date / Time aspirin Allergy Unknown Unverified 09/11/19 00:00 azithromycin Allergy Unknown Unverified 09/11/19 00:00 Active Medications: Current Medications Generic Name Dose Route Start Last Admin Trade Name Freq PRN Reason Stop Dose Admin Acetaminophen 650 mg 06/22/20 19:16 Acetaminophen 325 Mg Tablet PO Q6H PRN Pain, Mild (Pain Scale 1-3) Docusate Sodium 100 mg 06/22/20 19:16 Docusate Sodium 100 Mg Capsule PO DAILY PRN Constipation Enoxaparin Sodium 40 mg 06/22/20 21:00 06/23/20 20:39 Enoxaparin Sodium 40 Mg/0.4 Ml Syringe SUBCUT 40 mg Q24H [facility] Administration Furosemide 40 mg 06/23/20 18:00 06/24/20 08:56 Furosemide 40 Mg/4 Ml Vial IVPUSH 40 mg BID@0900,1800 [facility] Administration Protocol Insulin Human Lispro 0 unit 06/23/20 11:30 06/24/20 07:22 Insulin Lispro 100 Unit/Ml 3 Ml Vial SUBCUT Not Given QIDACHS [facility] Protocol Levalbuterol HCl 1.25 mg 06/22/20 20:00 06/24/20 07:43 Levalbuterol Hcl 1.25 Mg/0.5 Ml Vial.Neb INHALE Not Given RQ4H WHILE AWAKE [facility] Morphine Sulfate 1 mg 06/22/20 19:19 Morphine Sulfate 4 Mg/Ml Cartridge IVPUSH Q4H PRN Pain, Severe (Pain Scale 7-10) Senna 17.2 mg 06/22/20 19:16 Sennosides 8.6 Mg Tablet PO BEDTIME PRN Constipation Sodium Chloride 3 ml 06/23/20 00:00 06/24/20 08:56 0.9 % Sodium Chloride Flush 3 Ml [facility]ringe [facility] Home Medications Medication Instructions Recorded Confirmed Last Taken Type colchicine 0.6 mg tablet 0 mg PO 06/21/20 Unknown History folic acid 1 mg tablet 1 mg PO DAILY 06/21/20 06/22/20 Unknown History methotrexate sodium 2.5 mg tablet 20 mg PO QWEEK 06/21/20 06/22/20 Unknown Histo ry Physical Exam Vital Signs: Vital Signs: Last Vital Signs Temp 96.8 F 06/24/20 07:03 Pulse 89 06/24/20 07:03 Resp 24 H 06/24/20 07:03 BP 128/80 06/24/20 07:03 Pulse Ox 88 L 06/24/20 07:03 Body Mass Index 46.8 Const: General: cooperative, comfortable and acute distress mild and respiratory (With minimal activity) Nutritional Appearance: obese morbidly obese Orientation/consciousness: patient oriented x3 HENMT: Head: Yes normocephalic and Yes atraumatic Neck: Neck: Yes trachea midline, Yes supple and Yes no JVD Resp: Effort & Inspection: normal respiratory effort Auscultation: no rales, no wheezes and diminished lung sounds Cardio: Jugular venous distension: no JVD Rate: regular rate Rhythm: regular rhythm Heart sounds: S1 normal heart sound present and S2 normal heart sound present Skin: General skin exam: no rashes or lesions noted Neuro: General: patient oriented x3 and no focal motor deficits Extrem: General: No clubbing, No cyanosis and Yes other (Lower extremity in wraps with no clear pitting edema) Results Labs and Meds Result diagrams: 06/24/20 05:32 06/24/20 05:32 Lab results: Laboratory Results - last 24 hr 06/23/20 06/23/20 06/23/20 11:12 15:59 19:57 WBC RBC Hgb Hct MCV MCH MCHC RDW Plt Count MPV Immature Gran % (Auto) Neut % (Auto) Lymph % (Auto) [place] % (Auto) Eos % (Auto) Baso % (Auto) Lymph # (Auto) [place] # (Auto) Eos # (Auto) Baso # (Auto) Abs Immat Gran (auto) Absolute Neuts (auto) Absolute Nucleated RBC Nucleated RBC % (auto) Sodium Potassium Chloride Carbon Dioxide Anion Gap BUN Creatinine Estim Creat Clear Calc Estimated GFR POC Glucose 296 H 104 173 H Fasting Glucose Calcium Magnesium Total Bilirubin Direct Bilirubin AST ALT Alkaline Phosphatase Total Protein Albumin Vancomycin Trough 06/24/20 06/24/20 06/24/20 05:32 05:32 05:32 WBC 8.1 RBC 4.94 Hgb 14.9 Hct 48.5 MCV 98.2 H MCH 30.2 MCHC 30.7 L RDW 14.4 Plt Count 198 MPV 10.7 Immature Gran % (Auto) 0.2 Neut % (Auto) 68.4 Lymph % (Auto) 20.5 [place] % (Auto) 7.2 Eos % (Auto) 3.2 Baso % (Auto) 0.5 Lymph # (Auto) 1.7 [place] # (Auto) 0.6 Eos # (Auto) 0.3 Baso # (Auto) 0.0 Abs Immat Gran (auto) 0.02 Absolute Neuts (auto) 5.6 Absolute Nucleated RBC 0.000 Nucleated RBC % (auto) 0.0 Sodium 141 Potassium 4.0 Chloride 97 Carbon Dioxide 36 H Anion Gap 12 BUN 12 Creatinine 0.89 Estim Creat Clear Calc 92.0 Estimated GFR > 60 POC Glucose Fasting Glucose 136 H Calcium 8.1 L Magnesium 4.9 H* Total Bilirubin 0.6 Direct Bilirubin 0.2 AST 17 ALT 20 Alkaline Phosphatase 74 Total Protein 6.7 Albumin 3.3 L Vancomycin Trough < 3.0 L 06/24/20 06:58 WBC RBC Hgb Hct MCV MCH MCHC RDW Plt Count MPV Immature Gran % (Auto) Neut % (Auto) Lymph % (Auto) [place] % (Auto) Eos % (Auto) Baso % (Auto) Lymph # (Auto) [place] # (Auto) Eos # (Auto) Baso # (Auto) Abs Immat Gran (auto) Absolute Neuts (auto) Absolute Nucleated RBC Nucleated RBC % (auto) Sodium Potassium Chloride Carbon Dioxide Anion Gap BUN Creatinine Estim Creat Clear Calc Estimated GFR POC Glucose 142 H Fasting Glucose Calcium Magnesium Total Bilirubin Direct Bilirubin AST ALT Alkaline Phosphatase Total Protein Albumin Vancomycin Trough Assessment and Plan (1) Cardiomyopathy: Status: Acute Patient noted to have mild LV systolic dysfunction by echocardiogram which was performed for hypoxemia. Clinically not in heart failure. Most likely cause of his low ejection fraction appears to be his obesity/under diagnose sleep apnea. He needs sleep study which can be done as an outpatient. He has high risk for developing heart failure in the future given his multiple risk factors, currently not in heart failure. Heart failure education should be provided. Does not need diuretic therapy. (2) Hypoxia: Problem details: HYPOXEMIA OF WHICH THE PATIENT WAS NOT AWARE OF IS MOST LIKELY DUE TO BIBASILAR ATELECTASIS AND RELATIVE HYPOVENTILATION. CTA OF THE CHEST DOES NOT SHOW ANY PULMONARY EMBOLISM AND ALSO DOES NOT SHOW ANY EVIDENCE OF INTERSTITIAL LUNG DISEASE. FOR THE TIME BEING KEEP HIM ON OXYGEN 1 OR 2 L/MINUTE TO KEEP O2 SAT ABOVE 90%. Status: Acute Hypoxemia, persistent appears to be secondary to pulmonary restrictive disease due to morbid obesity and bilateral atelectasis. Incentive spirometry and deep breathing exercise need to be pursued. A long run requires aggressive weight loss. May also have underlying obstructive sleep apnea may require CPAP/BiPAP therapy as outpatient. This was discussed with the patient. Will sign of the case. Thank you for allowing us to partake in his care
[2020-06-24 11:15] LABS: Glucose, Whole Blood 213 mg/dL (60-115)
[2020-06-24] MEDS: Insulin Lispro 100 UNIT/ML 3 ML VIAL SUBCUT ×2 (11:40→17:12)
--- NOTE | 2020-06-24 11:53 | PM.PNPUL ---
Subjective Subjective Date of Service: 06/24/20 Principal diagnosis: cELLULITIS OF LEGS / RESP.FAILURE Interval history: THIS 74 YEARS OLD GENTLEMAN IS BEING TREATED FOR ACUTE CELLULITIS OF HIS LEGS. HE ALSO HAS MORBID OBESITY AND FEATURES OF THE JACKIE/HYPOVENTILATION SYNDROME. VENOUS BLOOD GAS STUDY IS GROSSLY ABNORMAL, SHOWING PCO2 OF 66 CONSISTENT WITH CHRONIC HYPERCAPNIC RESPIRATORY FAILURE. Objective Data Labs CBC & Chem 7: 06/24/20 05:32 06/24/20 05:32 Labs: Laboratory Results - last 24 hr 06/23/20 06/23/20 06/24/20 15:59 19:57 05:32 WBC RBC Hgb Hct MCV MCH MCHC RDW Plt Count MPV Immature Gran % (Auto) Neut % (Auto) Lymph % (Auto) [place] % (Auto) Eos % (Auto) Baso % (Auto) Lymph # (Auto) [place] # (Auto) Eos # (Auto) Baso # (Auto) Abs Immat Gran (auto) Absolute Neuts (auto) Absolute Nucleated RBC Nucleated RBC % (auto) Sodium Potassium Chloride Carbon Dioxide Anion Gap BUN Creatinine Estim Creat Clear Calc Estimated GFR POC Glucose 104 173 H Fasting Glucose Calcium Magnesium Total Bilirubin Direct Bilirubin AST ALT Alkaline Phosphatase Total Protein Albumin Vancomycin Trough < 3.0 L 06/24/20 06/24/20 06/24/20 05:32 05:32 06:58 WBC 8.1 RBC 4.94 Hgb 14.9 Hct 48.5 MCV 98.2 H MCH 30.2 MCHC 30.7 L RDW 14.4 Plt Count 198 MPV 10.7 Immature Gran % (Auto) 0.2 Neut % (Auto) 68.4 Lymph % (Auto) 20.5 [place] % (Auto) 7.2 Eos % (Auto) 3.2 Baso % (Auto) 0.5 Lymph # (Auto) 1.7 [place] # (Auto) 0.6 Eos # (Auto) 0.3 Baso # (Auto) 0.0 Abs Immat Gran (auto) 0.02 Absolute Neuts (auto) 5.6 Absolute Nucleated RBC 0.000 Nucleated RBC % (auto) 0.0 Sodium 141 Potassium 4.0 Chloride 97 Carbon Dioxide 36 H Anion Gap 12 BUN 12 Creatinine 0.89 Estim Creat Clear Calc 92.0 Estimated GFR > 60 POC Glucose 142 H Fasting Glucose 136 H Calcium 8.1 L Magnesium 4.9 H* Total Bilirubin 0.6 Direct Bilirubin 0.2 AST 17 ALT 20 Alkaline Phosphatase 74 Total Protein 6.7 Albumin 3.3 L Vancomycin Trough 06/24/20 11:05 WBC RBC Hgb Hct MCV MCH MCHC RDW Plt Count MPV Immature Gran % (Auto) Neut % (Auto) Lymph % (Auto) [place] % (Auto) Eos % (Auto) Baso % (Auto) Lymph # (Auto) [place] # (Auto) Eos # (Auto) Baso # (Auto) Abs Immat Gran (auto) Absolute Neuts (auto) Absolute Nucleated RBC Nucleated RBC % (auto) Sodium Potassium Chloride Carbon Dioxide Anion Gap BUN Creatinine Estim Creat Clear Calc Estimated GFR POC Glucose 213 H Fasting Glucose Calcium Magnesium Total Bilirubin Direct Bilirubin AST ALT Alkaline Phosphatase Total Protein Albumin Vancomycin Trough Microbiology Microbiology Results: Microbiology 06/22/20 12:43 Blood - Venous Blood Culture - Preliminary No growth after 24 hours. 06/22/20 12:43 Blood - Venous Blood Culture - Preliminary No growth after 24 hours. Review of Systems Review of Systems Yes all other systems are reviewed and are negative Constitutional: Reports body ache(s), Reports chills, Reports fever(s) and Reports headache(s) Eyes: Reports as per HPI, Reports blurry vision, Reports irritation and Reports itchy eyes Reports system reviewed and no additional complaints, except as documented, Reports halitosis, Denies dysphagia, Reports vertigo, Reports headache(s), Denies epistaxis, Denies nasal congestion, Denies nasal discharge, Denies nasal obstruction and Denies sinus pain Cardiovascular: Denies chest pain, Denies rapid heart rate, Reports irregular heart rhythm, Denies dyspnea on exertion and Denies slow heart rate Respiratory: Reports as per HPI, Denies dyspnea on exertion, Denies stridor and Denies wheezing Gastrointestinal: Denies bloating, Denies change in bowel habits, Reports change in stool character, Denies dysphagia, Denies heartburn, Denies nausea and Denies vomiting Genitourinary: Denies urinary incontinence Reports vertigo and Reports headache(s) Hematologic/Lymphatic: Reports no additional hematologic/lymphatic complaints Allergic/Immunologic: Reports no additional allergic/immunologic complaints, Reports itchy eyes and Denies wheezing Physical Exam Vital Signs: Vital Signs: Last Vital Signs Temp 71.3 F L 06/24/20 11:15 Pulse 84 06/24/20 11:27 Resp 20 06/24/20 11:15 BP 100/52 L 06/24/20 11:15 Pulse Ox 90 L 06/24/20 11:15 Body Mass Index 46.8 Const: General: comfortable, no acute distress, alert and awake Orientation/consciousness: patient oriented x3 HENMT: Head: Yes normal to inspection General nose exam: No nasal polyps present and No nasal discharge present Face and sinus: Yes sinuses nontender Mouth: oropharynx abnormals (CROWDED, MALLAMPATI CLASS 4) Eyes: General: appearance normal, both eyes and all related structures Neck: Neck: Yes normal visual inspection, Yes no lymphadenopathy, Yes trachea midline, Yes no JVD and Yes other (VERY OBESE NECK SIZE 19 IN) Thyroid: Thyroid normal Chest: Other: VERY THICK CHEST WALL, NONTENDER Resp: Other: BREATH SOUNDS ARE VERY DISTANT, NO WHEEZES OR CREPS ARE HEARD Cardio: Palpation: normal PMI Rate: regular rate Rhythm: regular rhythm Heart sounds: no gallops and no murmurs GI: Palpation (GI): Soft to palpation, nontender, No hepatosplenomegaly present, no masses and Other GI palpation findings present (ABDOMEN IS GROSSLY OBESE AND PENDULOUS) Auscultation: normal bowel sounds Back/Spine/Pelvis: Thoracic/Lumbar Spine: thoracic and lumbar spine normal to inspection Skin: General skin exam: no rashes or lesions noted Neuro: General: patient oriented x3 and no focal motor deficits Cranial nerves: Yes CN's II-XII intact bilaterally Extrem: General: Yes normal to inspection, Yes no clubbing, cyanosis or edema, Yes no calf tenderness, No venous stasis dermatitis and Yes other (REDNESS OF BOTH LEGS ANTERIORLY WORSE ON THE LEFT SIDE) Psych: Speech and movement: Normal speech and movement present Assessment and Plan Assessment and plan (1) Mild bibasilar atelectasis: Problem details: THIS IS DUE TO HIS GROSS OBESITY AND HYPOVENTILATION OF THE LOWER LOBES, WILL START HIM ON INCENTIVE SPIROMETRY Status: Acute (2) Morbid obesity: Problem details: THIS PATIENT HAS LIVED HIS WHOLE ADULT LIFE WITH MORBID OBESITY. AFTER THE TREATMENT OF HIS ACUTE CELLULITIS FOR WHICH HE IS ADMITTED, HE WOULD NEED TO GO ON A WEIGHT REDUCTION PROGRAM Status: Acute (3) JACKIE (obstructive sleep apnea): Problem details: CLINICALLY THIS PATIENT HAS TYPICAL FEATURES OF SLEEP APNEA WITH A ROUND FACE VERY SHORT NECK AND MALLAMPATI CLASS 4. HE WOULD NEED TO HAVE A QUICK SLEEP TEST OUTPATIENT AND THIS IS AN TO BE STARTED ON CPAP THERAPY. VENOUS BGs PCO2 = 66 C/W CHRONIC HYPOVENTILATION SYNDROME . I SUGGEST THAT WE DO OVERNIGHT OXIMETRY RECORDING , ON O2 4 L/MT , AND SEE IF WE CAN QUALIFY HIM FOR BIPAP THERAPY Status: Acute (4) Hypoxia: Problem details: HYPOXEMIA OF WHICH THE PATIENT WAS NOT AWARE OF IS MOST LIKELY DUE TO BIBASILAR ATELECTASIS AND HYPOVENTILATION. FOR THE TIME BEING KEEP HIM ON OXYGEN WITH GOAL OF KEEPING O2 SAT 90 % OR ABOVE . CURRENTLY REQUIRING 5 L/MT , IT MAY BE CUT DOWN TO 4 L/MT Status: Acute Time Spent With Patient Time: Total time spent is greater than 50% in coordination of care (as documented) at patient's floor/unit and/or counseling patient: Time with patient: 25 - 35 minutes
--- NOTE | 2020-06-24 14:40 | MHC.CM.PN ---
DP Male 74 DX Hypoxia. DP home no services family transport. A home O2 eval may be required prior to discharge. He benefit from VNA. CM will follow to assess for a change in discharge needs.
--- NOTE | 2020-06-24 14:48 | P.F2F_ITS ---
Service Date Service Date: 06/24/20 Reasons for Services Reason for longterm: diabetic teaching, medication management, medication treatment and teach disease management Homebound: Leaving the home is medically contraindicated at this time without the asist of a device and/or another person due th the listed conditions above and below. Reason homebound: unsteady gait / fall risk, poor balance / fall risk and weakness related to hospital stay Certification: Based on the above findings, I certify that this patient is confined to the home and needs intermittent longterm care, physical therapy and/or speech therapy, or continues to need occupational therapy. The patient is under my care, and I have initiated the establishment of the plan of care. The patient will be followed by a physician who will periodically review the plan of care.
--- NOTE | 2020-06-24 14:48 | PM.DS ---
DS: Providers Provider Date of Service: 06/24/20 Date of admission: 06/22/20 19:16 Primary care physician: ISRRAEL Cerna Consults: 06/22/20 19:16 Consult to Pulmonology Routine Consulting Provider: Junie Adame Reason for consultation: Hypoxia;pt on methatrexate; ?JACKIE 06/22/20 19:20 Consult to Infectious Diseases Routine Consulting Provider: Fozia Young Reason for consultation: Cellulitis 06/23/20 13:22 Consult to Cardiology Routine Consulting Provider: Driss Moulton Reason for consultation: reduced EF on echo DS: Diagnosis Discharge Diagnosis (1) Mild bibasilar atelectasis: Status: Acute (2) Morbid obesity: Status: Acute (3) JACKIE (obstructive sleep apnea): Status: Acute Problem details: CLINICALLY THIS PATIENT HAS TYPICAL FEATURES OF SLEEP APNEA WITH A ROUND FACE VERY SHORT NECK AND MALLAMPATI CLASS 4. HE WOULD NEED TO HAVE A QUICK SLEEP TEST OUTPATIENT AND THIS IS AN TO BE STARTED ON CPAP THERAPY. VENOUS BGs PCO2 = 66 C/W CHRONIC HYPOVENTILATION SYNDROME . I SUGGEST THAT WE DO OVERNIGHT OXIMETRY RECORDING , ON O2 4 L/MT , AND SEE IF WE CAN QUALIFY HIM FOR BIPAP THERAPY (4) Hypoxia: Status: Acute Problem details: HYPOXEMIA OF WHICH THE PATIENT WAS NOT AWARE OF IS MOST LIKELY DUE TO BIBASILAR ATELECTASIS AND HYPOVENTILATION. FOR THE TIME BEING KEEP HIM ON OXYGEN WITH GOAL OF KEEPING O2 SAT 90 % OR ABOVE . CURRENTLY REQUIRING 5 L/MT , IT MAY BE CUT DOWN TO 4 L/MT (5) Cardiomyopathy: Status: Acute (6) Fatty liver: Status: Acute (7) Lower extremity edema: Status: Acute DS: Medications Discharge Medications Home Medications: Home Medications Medication Instructions Recorded Confirmed colchicine 0.6 mg tablet 0 mg PO 06/21/20 folic acid 1 mg tablet 1 mg PO DAILY 06/21/20 06/22/20 methotrexate sodium 2.5 mg tablet 20 mg PO QWEEK 06/21/20 06/22/20 Previous Rx's Medication Instructions Recorded furosemide [Lasix] 20 mg PO DAILY #30 tab 06/24/20 metformin 500 mg PO BID #60 tab 06/24/20 DS: Summary Hospital Course Hospital Course: Patient was admitted initially for suspicion of bilateral lower extremity cellulitis. On further evaluation this was deemed to be stasis dermatitis and antibiotics were discontinued, he was given IV Lasix and Martin wraps and dermatitis improved. Patient was noted to have acute hypoxic and hypercapnic respiratory failure likely due to OHS/obesity related restrictive lung disease. Echo showed a mildly reduced ejection fraction. ABG significant for hypercapnia. Recommendations were for patient to stay for overnight sleep study to qualify for BiPAP. However patient refused. He was assessed for home O2 and will require 6 L to maintain a saturation above 90. He will follow up with Pulmonary as outpatient to arrange BiPAP. Patient was also noted to have elevated A1c of 8.1. He was told in the past that he has sugar likely not a new diagnosis. He will be discharged with metformin. Patient strongly encouraged to lose weight. Time Spent with Patient Time attestation: Total time spent providing and/or coordinating discharge services: Discharge coordination time: Greater than 30 minutes Physical Exam Vital Signs: Vital Signs: Last Vital Signs Temp 71.3 F L 06/24/20 11:15 Pulse 84 06/24/20 11:27 Resp 20 06/24/20 11:15 BP 100/52 L 06/24/20 11:15 Pulse Ox 90 L 06/24/20 11:15 Body Mass Index 46.8 General: AO X 3, no acute distress Resp: diminished CVS: S1,S2,RRR GI: soft, non tender, non distended Neuro: motor grossly intact Psych: appropriate affect DS: Data Data Completed and Pending Labs on day of discharge: Laboratory Results - last 24 hr 06/23/20 06/23/20 06/24/20 15:59 19:57 05:32 WBC RBC Hgb Hct MCV MCH MCHC RDW Plt Count MPV Immature Gran % (Auto) Neut % (Auto) Lymph % (Auto) [place] % (Auto) Eos % (Auto) Baso % (Auto) Lymph # (Auto) [place] # (Auto) Eos # (Auto) Baso # (Auto) Abs Immat Gran (auto) Absolute Neuts (auto) Absolute Nucleated RBC Nucleated RBC % (auto) Sodium Potassium Chloride Carbon Dioxide Anion Gap BUN Creatinine Estim Creat Clear Calc Estimated GFR POC Glucose 104 173 H Fasting Glucose Calcium Magnesium Total Bilirubin Direct Bilirubin AST ALT Alkaline Phosphatase Total Protein Albumin Vancomycin Trough < 3.0 L 06/24/20 06/24/20 06/24/20 05:32 05:32 06:58 WBC 8.1 RBC 4.94 Hgb 14.9 Hct 48.5 MCV 98.2 H MCH 30.2 MCHC 30.7 L RDW 14.4 Plt Count 198 MPV 10.7 Immature Gran % (Auto) 0.2 Neut % (Auto) 68.4 Lymph % (Auto) 20.5 [place] % (Auto) 7.2 Eos % (Auto) 3.2 Baso % (Auto) 0.5 Lymph # (Auto) 1.7 [place] # (Auto) 0.6 Eos # (Auto) 0.3 Baso # (Auto) 0.0 Abs Immat Gran (auto) 0.02 Absolute Neuts (auto) 5.6 Absolute Nucleated RBC 0.000 Nucleated RBC % (auto) 0.0 Sodium 141 Potassium 4.0 Chloride 97 Carbon Dioxide 36 H Anion Gap 12 BUN 12 Creatinine 0.89 Estim Creat Clear Calc 92.0 Estimated GFR > 60 POC Glucose 142 H Fasting Glucose 136 H Calcium 8.1 L Magnesium 4.9 H* Total Bilirubin 0.6 Direct Bilirubin 0.2 AST 17 ALT 20 Alkaline Phosphatase 74 Total Protein 6.7 Albumin 3.3 L Vancomycin Trough 06/24/20 11:05 WBC RBC Hgb Hct MCV MCH MCHC RDW Plt Count MPV Immature Gran % (Auto) Neut % (Auto) Lymph % (Auto) [place] % (Auto) Eos % (Auto) Baso % (Auto) Lymph # (Auto) [place] # (Auto) Eos # (Auto) Baso # (Auto) Abs Immat Gran (auto) Absolute Neuts (auto) Absolute Nucleated RBC Nucleated RBC % (auto) Sodium Potassium Chloride Carbon Dioxide Anion Gap BUN Creatinine Estim Creat Clear Calc Estimated GFR POC Glucose 213 H Fasting Glucose Calcium Magnesium Total Bilirubin Direct Bilirubin AST ALT Alkaline Phosphatase Total Protein Albumin Vancomycin Trough Preliminary micro results at discharge 06/22/20 12:43 Blood Culture - Preliminary Blood - Venous No growth after 24 hours. 06/22/20 12:43 Blood Culture - Preliminary Blood - Venous No growth after 24 hours. Discharge Plan Discharge Patient Disposition: Home Health Service Discharge Diagnosis: pickiwickian syndrome, dm Referrals: Junie Adame MD [Physician] - 1 Week Wes Gilbert FNP-FRANK [Primary Care Provider] - 1 Week Discharge Medications: New metformin 500 mg tablet 500 mg PO BID Qty: 60 RF: 0 furosemide [Lasix] 20 mg tablet 20 mg PO DAILY Qty: 30 RF: 0 Continued methotrexate sodium 2.5 mg tablet 20 mg PO QWEEK RF: 0 folic acid 1 mg tablet 1 mg PO DAILY RF: 0 colchicine 0.6 mg tablet 0 mg PO RF: 0 Discharge Orders: Discharge Order (Routine); Ordered 06/24/20 Ordered By: Brayn Sales Diet: advance to usual diet Activity on Discharge: As tolerated Stand Alone Forms: Patient Portal Discharge page Care Plan Goals: recovery Health Concerns: morbid obesity, DM, hypoxia, ohs/jackie Plan of Treatment: lasix, metformin, follow up with pulmonary for sleep study Assessment: see above
[2020-06-24 16:08] LABS: Glucose, Whole Blood 185 mg/dL (60-115)
--- NOTE | 2020-06-24 16:34 | W.PM.IDCN ---
History of Present Illness Data of Consult Service Date: 06/24/20 Requesting physician: Bryan Sales Primary Care Provider: Wes Gilbert [employer]INE[employer]- HPI Reason for consult: hypoxia He presents with weakness and fatigue He has no fever or chills He has some concern over left leg irritation/redness Review of Systems Review of Systems: Yes all other systems are reviewed and are negative PMFSH Past Medical History Medical History Diabetes Fatty liver Foot injury Gout High cholesterol Mild bibasilar atelectasis Morbid obesity Obesity JACKIE (obstructive sleep apnea) SOB (shortness of breath) Family History Family history: reviewed and not pertinent Surgical History Surgical History H/O abdominal surgery Social History Social History Household Members: Spouse Housing: House Alcohol intake: current Alcohol intake frequency: 0-2 drinks per day Smoking Status: Current every day smoker Second Hand Smoke Exposure: Yes service: No Current occupational status: retired Meds Allergies Allergy/AdvReac Type Severity Reaction Status Date / Time aspirin Allergy Unknown Unverified 09/11/19 00:00 azithromycin Allergy Unknown Unverified 09/11/19 00:00 Active Medications: Current Medications Generic Name Dose Route Start Last Admin Trade Name Freq PRN Reason Stop Dose Admin Acetaminophen 650 mg 06/22/20 19:16 Acetaminophen 325 Mg Tablet PO Q6H PRN Pain, Mild (Pain Scale 1-3) Docusate Sodium 100 mg 06/22/20 19:16 Docusate Sodium 100 Mg Capsule PO DAILY PRN Constipation Enoxaparin Sodium 40 mg 06/22/20 21:00 06/23/20 20:39 Enoxaparin Sodium 40 Mg/0.4 Ml Syringe SUBCUT 40 mg Q24H SINA Administration Furosemide 40 mg 06/23/20 18:00 06/24/20 08:56 Furosemide 40 Mg/4 Ml Vial IVPUSH 40 mg BID@0900,1800 SINA Administration Protocol Insulin Human Lispro 0 unit 06/23/20 11:30 06/24/20 11:40 Insulin Lispro 100 Unit/Ml 3 Ml Vial SUBCUT 4 unit QIDACHS SINA Administration Protocol Levalbuterol HCl 1.25 mg 06/22/20 20:00 06/24/20 15:53 Levalbuterol Hcl 1.25 Mg/0.5 Ml Vial.Neb INHALE 1.25 mg RQ4H WHILE AWAKE SINA Administration Morphine Sulfate 1 mg 06/22/20 19:19 Morphine Sulfate 4 Mg/Ml Cartridge IVPUSH Q4H PRN Pain, Severe (Pain Scale 7-10) Senna 17.2 mg 06/22/20 19:16 Sennosides 8.6 Mg Tablet PO BEDTIME PRN Constipation Sodium Chloride 3 ml 06/23/20 00:00 06/24/20 08:56 0.9 % Sodium Chloride Flush 3 Ml Syringe IVFLUSH 3 ml QSHIFT [facility] Administration Home Medications Medication Instructions Recorded Confirmed Last Taken Type colchicine 0.6 mg tablet 0 mg PO 06/21/20 Unknown History folic acid 1 mg tablet 1 mg PO DAILY 06/21/20 06/22/20 Unknown History methotrexate sodium 2.5 mg tablet 20 mg PO QWEEK 06/21/20 06/22/20 Unknown History Physical Exam Vital Signs: Vital Signs: Last Vital Signs Temp 97.8 F 06/24/20 15:11 Pulse 88 06/24/20 15:53 Resp 18 06/24/20 15:11 BP 112/50 L 06/24/20 15:11 Pulse Ox 97 06/24/20 15:11 Body Mass Index 46.8 Const: General: cooperative Orientation/consciousness: patient oriented x3 HENMT: Head: Yes normal to inspection Mouth: Normal oral and palatal mucosa present Resp: Effort & Inspection: normal respiratory effort Cardio: Rate: regular rate Rhythm: regular rhythm GI: Palpation (GI): Soft to palpation and nontender Skin: General skin exam: no rashes or lesions noted Neuro: General: patient oriented x3 Extrem: Other: left irritation scaly redness leg Results Labs CBC & Chem 7: 06/24/20 05:32 06/24/20 05:32 Labs: Short CBC 06/24/20 Range/Units 05:32 WBC 8.1 (4.8-10.8) X10*3/uL Hgb 14.9 (14.0-18.0) g/dl Hct 48.5 (42-52) % Plt Count 198 (160-400) X10*3/uL BMP 06/24/20 05:32 Sodium 141 Potassium 4.0 Chloride 97 Carbon Dioxide 36 H BUN 12 Creatinine 0.89 Calcium 8.1 L Liver Function 06/24/20 Range/Units 05:32 Total Bilirubin 0.6 (0.0-1.0) mg/dL Direct Bilirubin 0.2 (0.0-0.5) mg/dL AST 17 (5-37) U/L ALT 20 (0-40) U/L Alkaline Phosphatase 74 (39-117) U/L Albumin 3.3 L (3.5-5.0) g/dL Microbiology Microbiology Results: Microbiology 06/22/20 12:43 Blood - Venous Blood Culture - Preliminary No growth after 48 hours. 06/22/20 12:43 Blood - Venous Blood Culture - Preliminary No growth after 48 hours. Assessment and Plan (1) Lower extremity edema: Problem details: He has had scaly eczema leg He has no acute infection Status: Acute Would stop antibiotics
[2020-07-01 10:09] VITALS: PULSE 90; PULSE 94; PULSE 99; O2SAT 83; O2SAT 87; O2SAT 91
== END 2020-06-24 18:06 | disposition home health service (06) | DRG 637 ==
LOC: HO.ED 17:14 → HO.EDOVER 19:32 → HO.IMC 22:22
PROVIDERS: Internal Medicine; Physician Assistant; Admitting Provider Hospitalist; Emergency Provider Internal Medicine; PCP Nurse Practitioner Family; Visit Provider Internal Medicine
DX: E11.620 Type 2 diabetes mellitus with diabetic dermatitis (principal); J96.22 Acute and chronic respiratory failure with hypercapnia; J96.21 Acute and chronic respiratory failure with hypoxia; J98.11 Atelectasis; E66.2 Morbid (severe) obesity with alveolar hypoventilation; Z68.42 Body mass index [BMI] 45.0-49.9, adult; I87.323 Chronic venous hypertension (idiopathic) with inflammation of bilateral lower extremity; K75.81 Nonalcoholic steatohepatitis (NASH); F17.210 Nicotine dependence, cigarettes, uncomplicated; L40.9 Psoriasis, unspecified; Z20.822 Contact with and (suspected) exposure to COVID-19; Z71.6 Tobacco abuse counseling; Z79.899 Other long term (current) drug therapy
CPT/HCPCS: 0241U; 36415; 71045; 71275; 73590; 80048; 80053; 80061; 80076; 80202; 82728; 82947; 83036; 83605; 83615; 83735; 83880; 84145; 84153; 84443; 84484; 85025; 85610; 85652; 85730; 86140; 87040; 93005; 93306; 93970; 94640; 96365; 96366; 96368; 99285; J1650; J1940; J2543; J3370; Q9957

== ENCOUNTER → 2020-07-04 14:57 | Outpatient (BNVA) | payer MEDICARE, SELFPAY | PROVIDERS: PCP Nurse Practitioner Family; Visit Provider Internal Medicine | DX: J98.11 Atelectasis (principal); J96.91 Respiratory failure, unspecified with hypoxia; J96.92 Respiratory failure, unspecified with hypercapnia; G47.33 Obstructive sleep apnea (adult) (pediatric); E66.01 Morbid (severe) obesity due to excess calories; Z79.899 Other long term (current) drug therapy | CPT/HCPCS: 99212 ==

== ENCOUNTER 2020-07-12 09:12 | Outpatient (REF) | payer MEDICARE, SELFPAY ==
[2020-07-12 11:04] LABS: MANUAL DIFF FLAG NO
[2020-07-12 11:34] LABS: Basophils Percent Auto 0.6 % (0-2); Eosinophils Absolute Auto 0.2 X10*3/uL (0.0-0.4); Eosinophils Percent Auto 2.9 % (0-4); Hematocrit 52.4 % (42-52); Hemoglobin 16.5 g/dl (14.0-18.0); Imm Gran Abs Auto 0.02 X10*3/uL (0.00-0.03); Imm Gran Pct Auto 0.3 % (0.0-0.4); Lymphocytes Absolute Auto 1.9 X10*3/uL (1.2-4.9); Lymphocytes Percent Auto 25.9 % (20-40); Mean Corpuscular HGB Conc 31.5 g/dl (31.0-36.0); Mean Corpuscular Hemoglobin 30.1 pg (27.0-33.0); Mean Corpuscular Volume 95.4 fL (80-98); Mean Platelet Volume 11.8 fL (9.4-12.4); Monocytes Absolute Auto 0.6 X10*3/uL (0.1-1.2); Monocytes Percent Auto 7.7 % (2-11); Neutrophils Absolute Auto 4.5 X10*3/uL (2.0-8.3); Neutrophils Percent Auto 62.6 % (45-73); Platelet Count 244 X10*3/uL (160-400); Red Blood Count 5.49 X10*6/uL (4.60-5.80); Red Cell Distribution Width 13.7 % (11.0-16.0); White Blood Count 7.1 X10*3/uL (4.8-10.8)
[2020-07-12 12:11] LABS: Prostate Specific Antigen Scr 3.01 ng/mL (<0.05-4.0); TSH reflex Free T4 0.88 uIU/mL (0.32-4.0)
[2020-07-12 12:20] LABS: Alanine Aminotransferase 24 U/L (0-40); Albumin Level 3.7 g/dL (3.5-5.0); Alkaline Phosphatase 78 U/L (39-117); Anion Gap 16 (12-20); Aspartate Amino Transferase 25 U/L (5-37); Bilirubin Total 0.7 mg/dL (0.0-1.0); Blood Urea Nitrogen 12 mg/dL (9-16); Carbon Dioxide 28 mmol/L (22-29); Chloride 101 mmol/L (96-108); Cholesterol 177 mg/dL; Estimated Glomerular Filt Rate > 60; Glucose Fasting 116 mg/dL (60-99); HDL Cholesterol 36 mg/dL; LDL Cholesterol Calculated 116 mg/dl; Potassium 4.6 mmol/L (3.3-5.1); Sodium 140 mmol/L (135-145); Total Protein 7.7 g/dL (6.5-8.0); Triglycerides 125 mg/dL
[2020-07-12 13:37] LABS: Estimated Average Glucose 183 mg/dL
== END 2020-07-12 09:13 | disposition home or self-care (01) ==
LOC: HO.HMGCLDS 09:12
PROVIDERS: PCP Nurse Practitioner Family; Visit Provider Nurse Practitioner Family
DX: Z12.5 Encounter for screening for malignant neoplasm of prostate (principal); E11.9 Type 2 diabetes mellitus without complications; J96.91 Respiratory failure, unspecified with hypoxia; J96.92 Respiratory failure, unspecified with hypercapnia; E66.01 Morbid (severe) obesity due to excess calories
CPT/HCPCS: 36415; 80053; 80061; 83036; 84153; 84443; 85025

== ENCOUNTER 2020-07-22 09:45 | Outpatient (REF) | payer MEDICARE, SELFPAY ==
--- NOTE | 2020-07-22 17:20 | PFT_ITS ---
INDICATION: Dyspnea. To note, the patient had a difficult time following instructions, unable to meet standards for DLCO, unable to meet standards for FVC maneuvers. Therefore, the information may be suboptimal. SPIROMETRY: The FEV1 to FVC 89% with an FEV1 of 1.49 L, which is 59% predicted, and an FVC of 1.68 L, which is 48% predicted. Again, bronchodilators were not used. The maximum voluntary ventilation was not able to be calculated. LUNG VOLUMES: Total lung capacity 82% predicted with an expiratory reserve volume of 20% predicted secondary to an elevated BMI. DIFFUSION CAPACITY: DLCO 91% predicted. COMPARISONS: None. INTERPRETATION: Again, this is a suboptimal study as the patient was not able to meet study standard protocols. However, it appears that there are no obstructive ventilatory defects. Bronchodilators were not used. The lung volumes do demonstrate a low normal total lung capacity, and a significantly decreased expiratory reserve volume secondary to an elevated BMI. Diffusion capacity is within normal limits. Clinical correlation warranted. MD ZHANG Bermudez/MAEGAN / [id number]
== END 2020-07-22 09:46 | disposition home or self-care (01) ==
LOC: HO.RESP 09:45
PROVIDERS: PCP Nurse Practitioner Family; Visit Provider Internal Medicine
DX: G47.33 Obstructive sleep apnea (adult) (pediatric) (principal); E66.01 Morbid (severe) obesity due to excess calories; J96.91 Respiratory failure, unspecified with hypoxia; J96.92 Respiratory failure, unspecified with hypercapnia
CPT/HCPCS: 94010; 94727; 94729

== ENCOUNTER → 2020-08-11 09:47 | Outpatient (BNVA) | payer MEDICARE, SELFPAY | PROVIDERS: PCP Nurse Practitioner Family; Visit Provider Internal Medicine | DX: E66.01 Morbid (severe) obesity due to excess calories (principal); G47.33 Obstructive sleep apnea (adult) (pediatric); J98.11 Atelectasis; J98.4 Other disorders of lung; J96.91 Respiratory failure, unspecified with hypoxia; J96.92 Respiratory failure, unspecified with hypercapnia | CPT/HCPCS: 99212 ==

== ENCOUNTER → 2020-10-03 11:22 | Outpatient (BNVA) | payer MEDICARE, SELFPAY | PROVIDERS: PCP Nurse Practitioner Family; Visit Provider Internal Medicine | DX: E66.01 Morbid (severe) obesity due to excess calories (principal); G47.33 Obstructive sleep apnea (adult) (pediatric); R09.02 Hypoxemia | CPT/HCPCS: 99212 ==

== ENCOUNTER 2020-10-13 08:00 | Outpatient (REF) | payer MEDICARE, SELFPAY ==
[2020-10-13 11:21] LABS: Glucose Urine UA NEG (NEG); Leukocyte Esterase Urine NEG (NEG); Nitrite Urine NEG (NEG); Urine Blood NEG (NEG); Urine Ketones NEG (NEG); Urine Protein NEG (NEG-TRACE)
[2020-10-13 11:34] LABS: Appearance Urine CLEAR; Color Urine YELLOW
[2020-10-13 11:44] LABS: Creatinine Urine 91.05 mg/dL; Microalbum/Creatinine Ratio Ur 9.8 ug/mg cr
[2020-10-13 11:52] LABS: Alanine Aminotransferase 15 U/L (0-40); Alkaline Phosphatase 77 U/L (39-117); Anion Gap 17 (12-20); Aspartate Amino Transferase 15 U/L (5-37); Bilirubin Total 0.8 mg/dL (0.0-1.0); Blood Urea Nitrogen 11 mg/dL (9-16); Calcium 9.4 mg/dL (8.4-10.2); Carbon Dioxide 26 mmol/L (22-29); Chloride 102 mmol/L (96-108); Cholesterol 117 mg/dL; Estimated Glomerular Filt Rate > 60; Glucose Fasting 112 mg/dL (60-99); HDL Cholesterol 33 mg/dL; LDL Cholesterol Calculated 64 mg/dl; Potassium 4.6 mmol/L (3.3-5.1); Sodium 140 mmol/L (135-145); Total Protein 7.6 g/dL (6.5-8.0); Triglycerides 102 mg/dL
[2020-10-13 12:05] LABS: TSH reflex Free T4 0.61 uIU/mL (0.32-4.0)
[2020-10-13 12:07] LABS: Estimated Average Glucose 143 mg/dL; Hemoglobin A1c % 6.6 %
== END 2020-10-13 08:01 | disposition home or self-care (01) ==
LOC: HO.HMGCLDS 08:00
PROVIDERS: PCP Nurse Practitioner Family; Visit Provider Nurse Practitioner Family
DX: I42.9 Cardiomyopathy, unspecified (principal); E11.9 Type 2 diabetes mellitus without complications
CPT/HCPCS: 36415; 80053; 80061; 81003; 82043; 83036; 84443

== ENCOUNTER 2020-12-09 12:54 | Outpatient (REF) | payer MEDICARE, SELFPAY ==
--- NOTE | ~2020-12-09 | XR_ITS ---
EXAMINATION: XR CHEST CLINICAL INFORMATION: Cough. COMPARISON: Most recent CTA chest dated 06/22/2020 TECHNIQUE: 2 views of the chest were obtained. FINDINGS: The lungs are clear. The cardiomediastinal silhouette is normal in size. There is no pleural effusion or pneumothorax. No acute osseous abnormality. XR/XR chest 2V IMPRESSION: No acute cardiopulmonary findings.
== END 2020-12-09 12:55 | disposition home or self-care (01) ==
LOC: HO.HMGCX 12:54
PROVIDERS: PCP Nurse Practitioner Family; Visit Provider Physician Assistant Medical
DX: R05.9 Cough, unspecified (principal)
CPT/HCPCS: 71046

== ENCOUNTER 2022-05-17 08:17 | Outpatient (REF) | payer MEDICARE, SELFPAY ==
[2022-05-20 17:28] LABS: TS Negative Control Passed; TS Panel A 0; TS Panel B 0; TS Positive Control Passed; TSpotTB Negative (Negative)
== END 2022-05-17 08:18 | disposition home or self-care (01) ==
LOC: HO.HMGCLDS 08:17
PROVIDERS: PCP Nurse Practitioner Family; Visit Provider Dermatology
DX: L40.0 Psoriasis vulgaris (principal); Z79.899 Other long term (current) drug therapy
CPT/HCPCS: 36415; 86481

== ENCOUNTER 2022-10-11 13:07 | Outpatient (AMB) | payer MEDICARE, SELFPAY ==
--- NOTE | 2022-10-11 13:29 | A.OFFPC_ITS ---
Vital Signs 10/11/22 13:30 10/11/22 17:36 Height 5 ft 9 in Weight 246 lb 8 oz BMI 36.4 BP 110/64 Blood Pressure Location Rt brachial Position Sitting Pulse 88 Pulse Source Pulse Oximeter Pulse Oximetry (%) 90 L 92 Oxygen Delivery Method Room Air Intake Visit Reasons: Physical exam-rescheduled from 07/09 Allergies aspirin Allergy (Unknown, Verified 10/11/22 17:48) Unknown azithromycin Allergy (Unknown, Verified 10/11/22 17:48) Unknown Medication List - Last Reconciled 10/11/22 by Wes Gilbert [facility] blood sugar diagnostic (DealAngelTouch Ultra Blue Test Strip) As directed, bid testing blood-glucose meter (DealAngelTouch Ultra2 Meter) As directed ibuprofen 400 mg PO Q8H lancets (OneTouch Delica Lancets) As directed, bid Tobacco use date assessed: 10/11/22 Fall risk assessment: No Falls in past year Last assessed Fall Risk: 10/11/22 Dental Screening Dental Screen Date: 10/11/22 Did you have a dental visit in the last 12 months?: No Did you have a dental problem in the last 6 months where you did not have access to dental care?: No Was dental information given to patient?: No HPI Physical exam-rescheduled from 07/09 HPI Details Pt is here for a PE. Will order labs. Pt has not had a colon screen, will order cologuard. Due for PSA, will order, refuses MALIKA. Denies dribbling with urination, weak stream, and nocturia. Pt is a diabetic. A1c in office today is 6.3. Due for microalbumin, will order. Denies polyuria, polydipsia, and neuropathy. Pt denies any signs and symptoms of hypoglycemia and does know how to correct it. Pt does not check his blood sugar often. Pt reports having an eye exam recently. Pt is a smoker, refuses low-dose CTs. Pt is obese, will refer for sleep study. Hx of cardiomyopathy, will do an EKG in office. Pt reports some shortness of breath on exertion. [facility] Medical History Diabetes Fatty liver Foot injury Gout High cholesterol Mild bibasilar atelectasis Morbid obesity Obesity JACKIE (obstructive sleep apnea) Respiratory failure with hypoxia and hypercapnia Restrictive lung disease SOB (shortness of breath) Stasis dermatitis Surgical History H/O abdominal surgery Social History Household Members: Spouse Housing: House Do you presently have visiting nurse or other home services: No Alcohol intake: current Alcohol intake frequency: 0-2 drinks per day Patient Tobacco Use Status: Current everyday Tobacco user Cigarettes Per Day: 5 e-Cigarette/Vaping Use: Never Used Second Hand Smoke Exposure: Yes service: No Current occupational status: retired Cognitive needs: No Hearing needs: No Vision needs: No Review of Systems Const Denies chills and Denies fever(s) Eyes Denies blurry vision ENT Denies vertigo, Denies dizziness and Denies sore throat Card Denies chest pain at rest, Denies chest pain with activity, Denies diaphoresis, Denies dyspnea and Reports dyspnea on exertion Resp Denies cough, Denies dyspnea, Reports dyspnea on exertion and Denies wheezing GI Denies abdominal pain, Denies melena, Denies hematochezia, Denies constipation, Denies diarrhea and Denies loose stools Denies hematuria Musc Denies numbness and Denies tingling Skin/Breast Denies lesions Neuro Denies vertigo, Denies dizziness, Denies numbness and Denies tingling Psych Denies anxiety, Denies depression, Denies homicidal ideation, Denies suicidal ideation and Denies other (substance abuse) Aller/Immun Denies wheezing Physical exam (Primary Care) Vital Signs: Last Vital Signs Pulse 88 10/11/22 13:30 BP 110/64 10/11/22 13:30 Pulse Ox 92 10/11/22 17:36 Oxygen Delivery Method Room Air 10/11/22 13:30 BMI result Body Mass Index 36.4 Tobacco/Smoking Status: Tobacco use Status Tobacco use date assessed 10/11/22 10/11/22 13:34 Patient Tobacco Use Status Current everyday Tobacco 10/11/22 13:34 e-Cigarette/Vaping Use Never Used 10/11/22 13:34 Const General: cooperative Nutritional Appearance: obese morbidly obese Orientation/consciousness: patient oriented x3 HENMT Head: Yes normal to inspection, Yes normocephalic and Yes atraumatic Ears: TM's normal bilaterally Eyes General: appearance normal, both eyes and all related structures Alignment and Position: alignment normal and position normal Neck Neck: Yes normal visual inspection and Yes no lymphadenopathy Thyroid: Thyroid normal Resp Effort & Inspection: normal respiratory effort Auscultation: diminished lung sounds Cardio Other: difficult to auscultate due to body habitus Rate: regular rate Rhythm: regular rhythm Heart sounds: S1 normal heart sound present, S2 normal heart sound present and no murmurs GI Palpation (GI): Soft to palpation and nontender Auscultation: normal bowel sounds Other: refused MALIKA, refused testicular exam Skin Rashes: no rashes Neuro General: patient oriented x3, moves all extremities, no focal motor deficits and deep tendon reflexes 2+ bilaterally Romberg Test: Negative Extrem Other: refused foot exam, trace edema to BLE, varicose veins noted bilat left>right Psych Appearance: grossly normal Mental Status: mental status grossly normal Speech and movement: Normal speech and movement present Affect: normal affect Attitude: cooperative Thought process: Normal thought process present Thought content: Normal thought content present Insight: Good insight present (Psych) Judgement: Good judgement present (Psych) Results AMB Hemoglobin A1c AMB Hemoglobin A1c 6.3 % Last Edit by Mercedez Rosales CMA on 10/11/22 13: 54 Results Reviewed Results Reviewed: Laboratory Last Values Hgb A1c (Clinic) 6.3 % (4.0-6.0) H 10/11/22 13:49 Assessment and Plan Assessment & Plan (1) Diabetes: Code(s): E11.9 - Type 2 diabetes mellitus without complications Plan: Labs ordered (2) Physical exam: Code(s): Z00.00 - Encounter for general adult medical examination without abnormal findings Plan: Labs ordered (3) Screening PSA (prostate specific antigen): Code(s): Z12.5 - Encounter for screening for malignant neoplasm of prostate Plan: PSA ordered (4) Cardiomyopathy: Code(s): I42.9 - Cardiomyopathy, unspecified (5) Obesity: Code(s): E66.9 - Obesity, unspecified (6) Smoker: Code(s): F17.200 - Nicotine dependence, unspecified, uncomplicated Plan The patient agreed to the use of a medical physics professor for this encounter. Scribed for ISRRAEL Alonzo by Sherlyn Sotelo, medical physics professor, on 10/11/2022 at 14:05 EST. Orders: Orders Comprehensive [place]. Panel Fast Today E11.9 - Type 2 diabetes mellitus without complications, Z00.00 - Encounter for general adult medical examination without abnormal findings Lipid Panel Today E11.9 - Type 2 diabetes mellitus without complications, Z00.00 - Encounter for general adult medical examination without abnormal findings TSH reflex Free T4 Today E11.9 - Type 2 diabetes mellitus without complications, Z00.00 - Encounter for general adult medical examination without abnormal findings Microalbumin, Random (w Creat) Today E11.9 - Type 2 diabetes mellitus without c omplications, Z00.00 - Encounter for general adult medical examination without abnormal findings Complete Blood Count Auto Diff Today E11.9 - Type 2 diabetes mellitus without complications, Z00.00 - Encounter for general adult medical examination without abnormal findings UA CC w/rflx Micro + Cult Today E11.9 - Type 2 diabetes mellitus without complications, Z00.00 - Encounter for general adult medical examination without abnormal findings Prostate Specific Antigen Scr Today Z12.5 - Encounter for screening for mal ignant neoplasm of prostate CA echo transthoracic complete Today I42.9 - Cardiomyopathy, unspecified AMB Hemoglobin A1c Today E11.9 - Type 2 diabetes mellitus without complications AMB EKG-In Office Today I42.9 - Cardiomyopathy, unspecified, Z00.00 - Encounter for general adult medical examination without abnormal findings Referrals Cologuard Test Z12.11 - Encounter for screening for malignant neoplasm of colon, Z12.12 - Encounter for screening for malignant neoplasm of rectum Sleep Medicine Referral E66.9 - Obesity, unspecified, F17.200 - Nicotine dependence, unspecified, uncomplicated, I42.9 - Cardiomyopathy, unspecified Coding Level of Care Code New Pt Prev Care >65yr (18332) Diagnoses Diabetes E11.9 Physical exam Z00.00 Screening PSA (prostate specific antigen) Z12.5 Cardiomyopathy I42.9 Obesity E66.9 Smoker F17.200
[2022-10-11 13:30] VITALS: BP 110/64; PULSE 88; O2SAT 90; BMI 36.4
[2022-10-11 17:36] VITALS: O2SAT 92
== END 2022-10-11 14:47 | disposition home or self-care (01) ==
LOC: HO.HMGC 13:07
PROVIDERS: PCP Nurse Practitioner Family; Visit Provider Nurse Practitioner Family
DX: Z00.00 Encounter for general adult medical examination without abnormal findings (principal); E11.9 Type 2 diabetes mellitus without complications; E66.9 Obesity, unspecified; Z68.36 Body mass index [BMI] 36.0-36.9, adult; F17.210 Nicotine dependence, cigarettes, uncomplicated; I42.9 Cardiomyopathy, unspecified
CPT/HCPCS: 83036; 99387

== ENCOUNTER 2022-10-15 07:45 | Outpatient (REF) | payer MEDICARE, SELFPAY ==
[2022-10-15 11:38] LABS: Appearance Urine Clear; Color Urine Yellow; Glucose Urine UA Negative (Negative); Leukocyte Esterase Urine Trace (Negative); Nitrite Urine Negative (Negative); PH 5.5 (5.0-9.0); Specific Gravity - Urine 1.015 (1.005-1.025); UMIC TRIGGER UACC YES; Urine Blood Negative (Negative); Urine Ketones Negative (Negative); Urine Protein Negative (Neg-Trace)
[2022-10-15 11:53] LABS: MANUAL DIFF FLAG NO
[2022-10-15 11:55] LABS: Bacteria Urine None Seen (None Seen); RBC Urine 0-2 /HPF (0-2); Squamous Epithelial Cell Urine 0-2 /HPF (0-2); WBC Urine 0-5 /HPF (0-5)
[2022-10-15 12:11] LABS: Basophils Absolute Auto 0.1 X10*3/uL (0.0-0.2); Basophils Percent Auto 0.7 % (0-2); Eosinophils Absolute Auto 0.2 X10*3/uL (0.0-0.4); Eosinophils Percent Auto 2.1 % (0-4); Hematocrit 47.5 % (42.0-52.0); Hemoglobin 15.3 g/dl (14.0-18.0); Imm Gran Abs Auto 0.02 X10*3/uL (0.00-0.03); Imm Gran Pct Auto 0.2 % (0.0-0.4); Lymphocytes Absolute Auto 1.8 X10*3/uL (1.2-4.9); Lymphocytes Percent Auto 22.5 % (20-40); Mean Corpuscular HGB Conc 32.2 g/dl (31.0-36.0); Mean Corpuscular Hemoglobin 29.5 pg (27.0-33.0); Mean Corpuscular Volume 91.5 fL (80.0-98.0); Mean Platelet Volume 12.6 fL (9.4-12.4); Monocytes Absolute Auto 0.6 X10*3/uL (0.1-1.2); Monocytes Percent Auto 6.9 % (2-11); Neutrophils Absolute Auto 5.5 x10*3/uL (2.0-8.3); Neutrophils Percent Auto 67.6 % (45-73); Platelet Count 234 X10*3/uL (160-400); Red Blood Count 5.19 X10*6/uL (4.60-5.80); Red Cell Distribution Width 13.2 % (11.0-16.0); White Blood Count 8.1 X10*3/uL (4.8-10.8)
[2022-10-15 12:19] LABS: Alanine Aminotransferase 13 U/L (0-40); Albumin Level 3.7 g/dL (3.5-5.0); Alkaline Phosphatase 65 U/L (39-117); Anion Gap 11 (12-20); Aspartate Amino Transferase 15 U/L (5-37); Bilirubin Total 0.5 mg/dL (0.0-1.0); Blood Urea Nitrogen 10 mg/dL (9-16); Calcium 9.4 mg/dL (8.4-10.2); Carbon Dioxide 30 mmol/L (22-29); Chloride 105 mmol/L (96-108); Cholesterol 169 mg/dL (<200); Estimated Glomerular Filt Rate > 60; Glucose Fasting 108 mg/dL (60-99); HDL Cholesterol 38 mg/dL (>40); LDL Cholesterol Calculated 108 mg/dL (<100); Potassium 4.1 mmol/L (3.3-5.1); Sodium 142 mmol/L (135-145); Total Protein 7.6 g/dL (6.5-8.0); Triglycerides 118 mg/dL (<150)
[2022-10-15 12:27] LABS: Prostate Specific Antigen Scr 4.92 ng/mL (<0.05-4.0)
[2022-10-15 12:37] LABS: TSH reflex Free T4 0.98 uIU/mL (0.32-4.0)
[2022-10-15 12:50] LABS: Creatinine Urine 137.69 mg/dL; Microalbum/Creatinine Ratio Ur 9.4 ug/mg cr (<30)
== END 2022-10-15 07:46 | disposition home or self-care (01) ==
LOC: HO.HMGCLDS 07:45
PROVIDERS: PCP Nurse Practitioner Family; Visit Provider Nurse Practitioner Family
DX: Z00.00 Encounter for general adult medical examination without abnormal findings (principal); Z12.5 Encounter for screening for malignant neoplasm of prostate; E11.9 Type 2 diabetes mellitus without complications
CPT/HCPCS: 36415; 80053; 80061; 81001; 82043; 84153; 84443; 85025

== ENCOUNTER 2023-03-04 11:48 | Outpatient (AMB) | payer MEDICARE, SELFPAY ==
[2023-03-04 12:56] VITALS: BP 128/72; PULSE 81; TEMP 36.4; O2SAT 96; BMI 38.7
--- NOTE | 2023-03-04 12:56 | MHC.OFFWIV ---
Intake Vital Signs 03/04/23 12:56 Height 5 ft 9 in Weight 262 lb BMI 38.7 BP 128/72 Blood Pressure Location Rt brachial Position Sitting Pulse 81 Pulse Source Pulse Oximeter Temp 97.5 F Temp Source Temporal Artery Scan Pulse Oximetry (%) 96 Oxygen Delivery Method Room Air Intake Visit Reasons: EST/cough and congestion (lobby masked) Intake Note: pt is here today for cough and congestion started 3 weeks ago Patient Tobacco Use Status: Current everyday Tobacco user Allergies aspirin Allergy (Unknown, Verified 03/04/23 13:08) Unknown azithromycin Allergy (Unknown, Verified 03/04/23 13:08) Unknown Do you need a note to return to daycare/school/sports/work: No HPI EST/cough and congestion (lobby masked) HPI Details 77 year old male patient presents today with a 3 week history of cough and nasal congestion. Denies shortness of breath. Denies fever or chills. Has been taking Dayquil. Reports productive cough with white sputum. He has restrictive lung disease and wears O2 at night however does not wish to wear it during the day. [facility] Medical History Restrictive lung disease Respiratory failure with hypoxia and hypercapnia Stasis dermatitis Fatty liver Diabetes Mild bibasilar atelectasis JACKIE (obstructive sleep apnea) Morbid obesity Obesity Foot injury High cholesterol Gout SOB (shortness of breath) Surgical History H/O abdominal surgery Social History Household Members: Spouse Housing: House Do you presently have visiting nurse or other home services: No Alcohol intake: current Alcohol intake frequency: 0-2 drinks per day Patient Tobacco Use Status: Current everyday Tobacco user Cigarettes Per Day: 5 e-Cigarette/Vaping Use: Never Used Second Hand Smoke Exposure: Yes service: No Current occupational status: retired Cognitive needs: No Hearing needs: No Vision needs: No Review of Systems Const All systems reviewed & are unremarkable except as noted in HPI and below Physical Exam Vital Signs: Last Vital Signs Temp 97.5 F 03/04/23 12:56 Pulse 81 03/04/23 12:56 BP 128/72 03/04/23 12:56 Pulse Ox 96 03/04/23 12:56 Oxygen Delivery Method Room Air 03/04/23 12:56 BMI result Body Mass Index 38.7 Const General: cooperative and no acute distress Nutritional Appearance: obese HEENT Head: Yes normal to inspection Ears: hearing grossly normal bilaterally General nose exam: Normal external nose present, Normal nasal mucous membranes and turbinates present and Nasal discharge present mucoid Face and sinus: Yes normal facial exam Throat: Yes posterior oropharynx normal Neck Neck: Yes no lymphadenopathy Resp Effort & Inspection: normal respiratory effort and Actively coughing Quality: productive Auscultation: wheezes (mild) upper bilaterally Cardio Palpation: normal PMI Rate: regular rate Rhythm: regular rhythm Skin General skin exam: no rashes or lesions noted Extrem General: Yes capillary refill normal and Yes no clubbing, cyanosis or edema Psych Appearance: grossly normal Mental Status: mental status grossly normal Speech and movement: Normal speech and movement present Assessment & Plan Assessment & Plan (1) Productive cough: Code(s): R05.8 - Other specified cough Plan: Patient has a 3 week history of URI with cough. Delines viral testing. Declines any treatment with abx or cough medication however is open to taking Prednisone as this has helped him in the past for respiratory illnesses. I will start him on a short course of prednisone. We reviewed indications, use, possible s/e including increased blood glucose. He should return to clinic or PCP for further evaluation if he does not improve with treatment. He verbalizes understanding of this and agrees to plan. Medications: New prednisone 20 mg PO BID 10 tabs 0RF 5 days R05.8 - Other specified cough Coding Level of Care Code Est Pt Level 3 (01946) Diagnoses Productive cough R05.8
== END 2023-03-04 13:48 | disposition home or self-care (01) ==
PROVIDERS: PCP Nurse Practitioner Family; Visit Provider Nurse Practitioner Family
DX: R05.8 Other specified cough (principal)
CPT/HCPCS: 99213

== ENCOUNTER 2023-05-07 09:15 | Outpatient (REF) | payer MEDICARE, SELFPAY ==
[2023-05-10 00:39] LABS: TS Negative Control Passed; TS Panel A 0; TS Panel B 0; TS Positive Control Passed; TSpotTB Negative (Negative)
== END 2023-05-07 09:16 | disposition home or self-care (01) ==
LOC: HO.HMGCLDS 09:15
PROVIDERS: PCP Nurse Practitioner Family; Visit Provider Dermatology
DX: L40.0 Psoriasis vulgaris (principal); Z79.899 Other long term (current) drug therapy
CPT/HCPCS: 36415; 86481

== ENCOUNTER 2023-05-27 08:18 | Outpatient (AMB) | payer MEDICARE, SELFPAY ==
--- NOTE | 2023-05-27 08:46 | MHC.PC.OV ---
Vital Signs 05/27/23 08:49 Height 5 ft 9 in Weight 278 lb BMI 41.0 BP 126/70 Blood Pressure Location Rt brachial Position Sitting Pulse 90 Pulse Source Pulse Oximeter Pulse Oximetry (%) 90 L Oxygen Delivery Method Room Air Intake Visit Reasons: Follow DM, was due for JAN per Wes last notes Intake Note: Patient here for DM f/u. Allergies aspirin Allergy (Unknown, Verified 05/27/23 08:49) Unknown azithromycin Allergy (Unknown, Verified 05/27/23 08:49) Unknown Medication List - Last Reconciled 05/27/23 by Wes Gilbert, STRUCTURAL STEEL ENGINEER- blood sugar diagnostic (Recorded FutureTouch Ultra Blue Test Strip) As directed, bid testing blood-glucose meter (Recorded FutureTouch Ultra2 Meter) As directed colchicine 0.6 mg orally PRN; 2 tabs with acute onset of gout attack, then take 1 tab 1hr later. may repeat in 3 days 12 days ibuprofen 400 mg PO Q8H ketoconazole 2% 1 appl topical DAILY lancets (OneTouch Delica Lancets) As directed, bid prednisone 50 mg PO DAILY 5 days Tobacco use date assessed: 05/27/23 Fall risk assessment: No Falls in past year Last assessed Fall Risk: 05/27/23 Dental Screening Dental Screen Date: 05/27/23 Did you have a dental visit in the last 12 months?: Yes Did you have a dental problem in the last 6 months where you did not have access to dental care?: No Was dental information given to patient?: Patient has dentist HPI Follow DM, was due for JAN per Wes last notes HPI Details Pt is a diabetic. A1C in office today is 7.3. Microalbumin is up to date. Denies polyuria, polydipsia, and neuropathy. Pt denies any signs and symptoms of hypoglycemia and does know how to correct it. Pt does not check his blood sugar often. Will start farxiga 5mg. Will order labs. Due for eye exam, will refer. Pt does report excessive tearing of his eyes. Pt has elongated toenails. He would not like to see a custom wood stair builder, he will take care of these himself (pt reported). Pt has tinea pedis inbetween his toes. Will send ketoconazole. Refused pneumonia and flu vaccines. Pt is a smoker, refused low-dose CT. Pt has a hx of cardiomyopathy. He would not like to see cardiology. Will do an EKG in office. Will also order echo. Pt has lung crackles on exam. He is coughing up mucus. Will order chest XR. Denies fever, chills, chest pain, and shortness of breath. Pt does have COPD. [facility] Medical History (Updated 05/27/23 @ 09:29 by ISRRAEL Garcia) Psoriasis Restrictive lung disease Respiratory failure with hypoxia and hypercapnia Stasis dermatitis Fatty liver Diabetes Mild bibasilar atelectasis JACKIE (obstructive sleep apnea) Morbid obesity Obesity Foot injury High cholesterol Gout SOB (shortness of breath) Surgical History H/O abdominal surgery Social History Household Members: Spouse Housing: House Do you presently have visiting nurse or other home services: No Alcohol intake: current Alcohol intake frequency: 0-2 drinks per day Patient Tobacco Use Status: Current everyday Tobacco user Cigarettes Per Day: 5 e-Cigarette/Vaping Use: Never Used Second Hand Smoke Exposure: Yes service: No Current occupational status: retired Cognitive needs: No Hearing needs: No Vision needs: No Questionnaire AUDIT C Alcohol Use Questionnaire (AUDIT-C) 1. How often do you have a drink containing alcohol?: Monthly or less 2. How many drinks containing alcohol do you have on a typical day when you are drinking?: 1 or 2 3. How often do you have six or more drinks on one occasion?: Never Total Score: 1 Score Reviewed/Action Taken: No Review of Systems Const Reports as per HPI Physical exam (Primary Care) Vital Signs: Last Vital Signs Pulse 90 05/27/23 08:49 BP 126/70 05/27/23 08:49 Pulse Ox 90 L 05/27/23 08:49 Oxygen Delivery Method Room Air 05/27/23 08:49 BMI result Body Mass Index 41.0 Tobacco/Smoking Status: Tobacco use Status Tobacco use date assessed 05/27/23 05/27/23 08:52 Patient Tobacco Use Status Current everyday Tobacco 05/27/23 08:48 e-Cigarette/Vaping Use Never Used 05/27/23 08:48 Const General: cooperative Nutritional Appearance: obese morbidly obese Orientation/consciousness: patient oriented x3 Resp Effort & Inspection: normal respiratory effort Auscultation: crackles bilateral at the base and diminished lung sounds Cardio Other: difficult to auscultate due to body habitus Rate: regular rate Rhythm: regular rhythm Heart sounds: S1 normal heart sound present and S2 normal heart sound present Neuro General: patient oriented x3 Extrem Other: bilat feet: + sensation with use of monofilament, elongated toenails, between toes with erythema with faint white excoriation Psych Appearance: grossly normal Mental Status: mental status grossly normal Speech and movement: Normal speech and movement present Affect: normal affect Attitude: cooperative Thought process: Normal thought process present Thought content: Normal thought content present Insight: Good insight present (Psych) Judgement: Good judgement present (Psych) Results AMB Hemoglobin A1c AMB Hemoglobin A1c 7.3 % Last Edit by KWABENA Zhao on 05/27/23 09:05 Results Reviewed Results Reviewed: Laboratory Last Values Hgb A1c (Clinic) 7.3 % (4.0-6.0) H 05/27/23 09:04 Assessment and Plan Assessment & Plan (1) Diabetes: Code(s): E11.9 - Type 2 diabetes mellitus without complications Plan: Labs ordered, referred for eye exam (2) Tinea pedis: Code(s): B35.3 - Tinea pedis Plan: Sending cream (3) Respiratory crackles at both lung bases: Code(s): R09.89 - Other specified symptoms and signs involving the circulatory and respiratory systems Plan: Chest XR ordered (4) Cardiomyopathy: Code(s): I42.9 - Cardiomyopathy, unspecified Plan: EKG done in office, echo ordered Plan The patient agreed to the use of a bilingual medical receptionist for this encounter. Scribed for ISRRAEL Alonzo by Sherlyn Sotelo bilingual medical receptionist, on 05/27/2023 at 09:10 EST. Orders: Orders CA echo transthoracic complete Today AMB Hemoglobin A1c Today Z13.9 - Encounter for screening, unspecified Complete Blood Count Auto Diff Today E11.9 - Type 2 diabetes mellitus without complications Comprehensive [place]. Panel Fast Today E11.9 - Type 2 diabetes mellitus without complications TSH reflex Free T4 Today E11.9 - Type 2 diabetes mellitus without complications UA CC w/rflx Micro + Cult Today E11.9 - Type 2 diabetes mellitus without complications Lipid Panel Today E11.9 - Type 2 diabetes mellitus without complications Microalbumin, Random (w Creat) Today E11.9 - Type 2 diabetes mellitus without complications XR chest 2V Today R09.89 - Other specified symptoms and signs involving the circulatory and respiratory systems AMB EKG-In Office Today I42.9 - Cardiomyopathy, unspecified Referrals Ophthalmology Referral E11.9 - Type 2 diabetes mellitus without complications Medications: New ketoconazole 2% 1 appl topical DAILY 60 grams 0RF atorvastatin 20 mg PO BEDTIME 90 tabs 0RF dapagliflozin propanediol (Farxiga) 5 mg PO DAILY 90 tabs 0RF Coding Level of Care Code Est Pt Level 3 (72728) Diagnoses Diabetes E11.9 Tinea pedis B35.3 Respiratory crackles at both lung bases R09.89 Cardiomyopathy I42.9
[2023-05-27 08:49] VITALS: BP 126/70; PULSE 90; O2SAT 90; BMI 41.0
== END 2023-05-27 09:55 | disposition home or self-care (01) ==
PROVIDERS: PCP Nurse Practitioner Family; Visit Provider Nurse Practitioner Family
DX: E11.9 Type 2 diabetes mellitus without complications (principal); I42.9 Cardiomyopathy, unspecified; B35.3 Tinea pedis; R09.89 Other specified symptoms and signs involving the circulatory and respiratory systems
CPT/HCPCS: 83036; 99213

== ENCOUNTER 2023-05-27 10:05 | Outpatient (REF) | payer MEDICARE, SELFPAY ==
--- NOTE | ~2023-05-27 | XR_ITS ---
EXAMINATION: XR CHEST CLINICAL INFORMATION: Other specified symptoms and signs involving the circulatory system COMPARISON: Chest radiograph 12/09/2020, CT angiogram chest 06/22/2020 TECHNIQUE: 2 views of the chest were obtained. FINDINGS: The heart and pulmonary vessels appear normal. Again seen is some atelectasis in the lingula better visualized on prior CT scan. No acute infiltrates, pleural effusions or lung masses are seen. XR/XR chest 2V IMPRESSION: No acute intrathoracic disease.
== END 2023-05-27 10:06 | disposition home or self-care (01) ==
LOC: HO.HMGCX 10:05
PROVIDERS: PCP Nurse Practitioner Family; Visit Provider Nurse Practitioner Family
DX: R09.89 Other specified symptoms and signs involving the circulatory and respiratory systems (principal)
CPT/HCPCS: 71046

== ENCOUNTER 2023-06-20 12:03 | Outpatient (AMB) | payer MEDICARE, SELFPAY ==
[2023-06-20 12:27] VITALS: BP 130/78; PULSE 89; TEMP 36.6; O2SAT 93
--- NOTE | 2023-06-20 12:27 | AM.OFFWIN_ITS ---
Intake Vital Signs 06/20/23 12:27 Height 5 ft 9 in BP 130/78 Blood Pressure Location Rt brachial Position Sitting Pulse 89 Pulse Source Pulse Oximeter Temp 97.9 F Temp Source Temporal Artery Scan Pulse Oximetry (%) 93 Oxygen Delivery Method Room Air Intake Visit Reasons: EP fell sidewalk nose bleed lft hand pain Intake Note: pt is here a fall, has nose bleed and left hand pain due to fall Patient Tobacco Use Status: Current everyday Tobacco user Allergies aspirin Allergy (Unknown, Verified 06/20/23 12:28) Unknown azithromycin Allergy (Unknown, Verified 06/20/23 12:28) Unknown Do you need a note to return to daycare/school/sports/work: No HPI HPI Comments History of Present Illness Details 77 y/o male patient who presents to walk in clinic with c/o Fall at home. Pt fell and hit his face on the ground and landed on his left wrist/hand. C/o bleeding bridge of the nose and left hand pain and swelling. Denies LOC but Pt was alone at home. [facility] Medical History (Updated 05/27/23 @ 09:29 by ISRRAEL Garcia) Psoriasis Restrictive lung disease Respiratory failure with hypoxia and hypercapnia Stasis dermatitis Fatty liver Diabetes Mild bibasilar atelectasis JACKIE (obstructive sleep apnea) Morbid obesity Obesity Foot injury High cholesterol Gout SOB (shortness of breath) Surgical History H/O abdominal surgery Social History Household Members: Spouse Housing: House Do you presently have visiting nurse or other home services: No Alcohol intake: current Alcohol intake frequency: 0-2 drinks per day Patient Tobacco Use Status: Current everyday Tobacco user Cigarettes Per Day: 5 e-Cigarette/Vaping Use: Never Used Second Hand Smoke Exposure: Yes service: No Current occupational status: retired Cognitive needs: No Hearing needs: No Vision needs: No Review of Systems Const All systems reviewed & are unremarkable except as noted in HPI and below Physical Exam Vital Signs: Last Vital Signs Temp 97.9 F 06/20/23 12:27 Pulse 89 06/20/23 12:27 BP 130/78 04/25/24 12:27 Pulse Ox 93 06/20/23 12:27 Oxygen Delivery Method Room Air 06/20/23 12:27 Const General: comfortable and no acute distress Nutritional Appearance: obese Orientation/consciousness: patient oriented x3 HEENT Head: Yes normocephalic Ears: external ears normal and TM's normal bilaterally General nose exam: Normal nasal mucous membranes and turbinates present and No nasal discharge present Face and sinus: Yes sinuses nontender and Yes abrasion (superficial abrasion nose bridge(septum). Sone tenderness with touch. ) Mouth: moist mucous membranes Neuro General: patient oriented x3 Extrem Right upper extremity: normal to inspection and full ROM Left upper extremity: wrist (mild swelling at the metacarpal region between right and pinky fingers) and hand Details: neuromotor exam abnormal, neurosensory exam normal, tenderness, normal ROM of fingers and swelling Assessment & Plan Assessment & Plan (1) Injury of left hand: Code(s): S69.92XA - Unspecified injury of left wrist, hand and finger(s), initial encounter Qualifiers: Encounter type: initial encounter Qualified Code(s): S69.92XA - Unspecified injury of left wrist, hand and finger(s), initial encounter Plan: - Martin bandage applied - IceHot - Acetaminophen for pain relief. Orders: Orders XR hand wrist LT Today S69.92XA - Unspecified injury of left wrist, hand and finger(s), initial encounter Medications: New acetaminophen 1,000 mg (2 x 500 mg) PO Q6H PRN 30 caps 0RF pain S69.92XA - Unspecified injury of left wrist, hand and finger(s), initial encounter Coding Level of Care Code Est Pt Level 3 (79678) Diagnoses Injury of left hand, initial encounter S69.92XA Encounter type: initial encounter Time Spent (min) 15
== END 2023-06-20 13:57 | disposition home or self-care (01) ==
PROVIDERS: PCP Nurse Practitioner Family; Visit Provider Nurse Practitioner Family
DX: S69.92XA Unspecified injury of left wrist, hand and finger(s), initial encounter (principal)
CPT/HCPCS: 99213

== ENCOUNTER 2023-06-20 13:18 | Outpatient (REF) | payer MEDICARE, SELFPAY ==
--- NOTE | ~2023-06-20 | XR_ITS ---
EXAMINATION: XR HAND/WRIST, LEFT CLINICAL INFORMATION: Unspecified injury COMPARISON: None TECHNIQUE: PA, lateral, and oblique views of the left hand and wrist. FINDINGS: Mild degenerative change at the first CMC. No fracture, dislocation or destructive process. No radiopaque foreign body. XR/XR hand wrist LT IMPRESSION: Negative
== END 2023-06-20 13:19 | disposition home or self-care (01) ==
LOC: HO.HMGCX 13:18
PROVIDERS: PCP Nurse Practitioner Family; Visit Provider Nurse Practitioner Family
DX: S69.92XA Unspecified injury of left wrist, hand and finger(s), initial encounter (principal)
CPT/HCPCS: 73110; 73130

== ENCOUNTER → 2023-07-03 10:12 | Outpatient (REF) | payer MEDICARE, SELFPAY ==
--- NOTE | 2023-07-03 10:18 | CA_ITS ---
Transthoracic Echocardiogram Patient (Last, First, Middle): Cody Moran L Gender: Male Date of : 1945 Age: 77 Procedure Date: 07/03/2023 Procedure Type: Transthoracic Echocardiogram Location: OP Height: 165.1 cm Weight: 113.4 kg BSA: 2.17 m2 Heart Rate: bpm BP: 138 / 80 mmHg Inshore Undersea Warfare Officer: KYREE Referring MD: Wes Gilbert [facility]- Egg Setter: Driss Moulton MD Symptoms: I42.9 CMP Study Quality: Technically Difficult, contrast ECG Rhythm: Sinus Conclusions: - 1. Technically limited study despite use of contrast agent 2. Mildly reduced LV ejection fraction 45-50% with possible RCA territory wall motion abnormality 3. Limited visualization of cardiac valves with cardiac valvular Doppler within normal limits Findings Procedure Information Contrast agent, definity, is being given per protocol without apparent complications. Left Ventricle The left ventricle was not well visualized. Normal left ventricular cavity size. There is moderately increased left ventricular wall thickness. The left ventricular systolic function is mildly decreased. Spectral Doppler is indicative of an impaired relaxation filling pattern. E/E prime ratio is between 8 and 15 consistent with indeterminate filling pressures. Wall Motion Rest Echo Findings The inferoseptal wall is hypokinetic. The basal inferior and mid inferior segments are akinetic. All other scored wall segments showed normal motion. Right Ventricle The right ventricle was not well visualized. There is normal right ventricular systolic function. Atria The left atrium is moderately dilated. Interatrial shunt cannot be excluded. The right atrium is mildly dilated. Aortic Valve The aortic valve was not well visualized. There is no aortic valve stenosis. There is no aortic valve regurgitation. Mitral Valve The mitral valve was not well visualized. There is no mitral valve regurgitation. There is no mitral valve stenosis. Pulmonic Valve The pulmonic valve was not well visualized. Tricuspid Valve The tricuspid valve was not well visualized. There is mild tricuspid valve regurgitation. The right ventricular systolic pressure is normal. The right ventricular systolic pressure is 21 mmHg. Indeterminate right atrial pressure. There is no evidence of pulmonary hypertension. Great Vessels The aorta was not well visualized. The pulmonary artery was not well visualized. Venous The inferior vena cava is normal in size. Pericardium/Pleural The pericardium was not well visualized. Prior Study Comparison No significant change compared to prior study dated: 06/23/2020. Measurements 2D Linear Measurements IVSd: 1.39 0.6-0.9/0.6-1.0 cm LVIDd: 4.53 3.9-5.3/4.2-5.9 cm LVIDd Index: 2.09 2.4-3.2/2.2-3.1 cm/m2 LVIDs: 3.27 2.0-3.6 cm LVPWd: 1.41 0.7-1.1 cm LA Diam: 4.90 2.7-3.8/3.0-4.0 cm LAIDs Index: 2.26 1.5-2.3 cm/m2 LV Mass: 312.91 67-162/88-224 g LV Mass Index: 144.20 43-95/49-115 g/m2 LVOT Diam: 2.20 3.0+(-)1.3 cm 2D Systolic Function EF 4C: 42.70 >55% EF 2C: 47.70 >55% EF BiP: 47.20 >55% Mitral Valve MV VTI: 0.28 MV Pk Tj: 1.12 MV Mn Tj: 0.79 MV Pk Grad: 5.00 MV Mn Grad: 3.00 MV Pk E: 0.74 MV PK A: 0.99 MV Decel Time: 189.00 E/A: 0.70 E'Lateral: 6.09 E'Medial: 4.03 E/E' Med: 18.30 E/E' Lat: 12.10 PHT: 56.00 MVA PHT: 3.93 MVA Continuity: 2.01 Decel Adams: 3.89 Aortic Valve AoV Pk Tj: 1.26 AoV Mn Tj: 0.99 AoV VTI: 0.26 AoV Pk Grad: 6.00 Aov Mn Grad: 4.00 ANANTH Cont.VTI: 2.24 LVOT LVOT Pk Tj: 0.68 LVOT Mn Tj: 0.48 LVOT VTI: 0.15 LVOT Pk Grad: 2.00 LVOT Mn Grad: 1.00 LVOT Diam: 2.20 LVOT Area: 3.80 Diastolic Function MV Pk E: 0.74 MV Pk A: 0.99 E/A: 0.70 E'Medial: 4.03 E/E' Med: 18.30 E' Laterial: 6.09 E/E' Lat: 12.10 Right Ventricle TAPSE (mm): 18.00 TVS' Tj: 11.60 Tricuspid Valve TR Pk Tj: 1.24 TR Pk Grad: 6.00 RA Press: 15.00 RVSP: 21.00 Great Vessels Aorta Ao Asc: 3.30 2.1-3.4 cm Updated in Other Vendor System with Status of Final Driss Moulton MD electronically signed on 07/03/2023 3:50:56 PM with status of Final
== END ==
LOC: HO.CARD 10:12
PROVIDERS: PCP Nurse Practitioner Family; Visit Provider Nurse Practitioner Family
DX: I42.9 Cardiomyopathy, unspecified (principal)
CPT/HCPCS: 93306; Q9957

== ENCOUNTER → 2023-07-03 10:18 | Outpatient (BNV) | payer MEDICARE, SELFPAY | PROVIDERS: PCP Nurse Practitioner Family; Visit Provider Internal Medicine Cardiovascular Disease | DX: I36.1 Nonrheumatic tricuspid (valve) insufficiency (principal) | CPT/HCPCS: 93306 ==

== ENCOUNTER 2023-07-17 11:29 | Outpatient (AMB) | payer MEDICARE, SELFPAY ==
--- NOTE | 2023-07-17 11:34 | MHC.OFFWIV ---
Intake Vital Signs 07/17/23 11:35 Height 5 ft 9 in BP 132/80 Blood Pressure Location Rt brachial Position Sitting Pulse 50 Pulse Source Pulse Oximeter Pulse Oximetry (%) 93 Intake Visit Reasons: EP both legs red and painful , skin peeling Intake Note: pt is here for red legs and painful with swelling Patient Tobacco Use Status: Current everyday Tobacco user Allergies aspirin Allergy (Unknown, Verified 07/17/23 11:39) Unknown azithromycin Allergy (Unknown, Verified 07/17/23 11:39) Unknown Do you need a note to return to daycare/school/sports/work: No HPI HPI Comments History of Present Illness Details 77 y/o male patient who presents to walk in clinic with c/o Redness, dry and peeling skin bilateral lower extremities. Pt has h/o uncontrolled T2DM - currently not taking his prescribed medications. [facility] Medical History (Updated 05/27/23 @ 09:29 by ISRRAEL Garcia) Psoriasis Restrictive lung disease Respiratory failure with hypoxia and hypercapnia Stasis dermatitis Fatty liver Diabetes Mild bibasilar atelectasis JACKIE (obstructive sleep apnea) Morbid obesity Obesity Foot injury High cholesterol Gout SOB (shortness of breath) Surgical History H/O abdominal surgery Social History Household Members: Spouse Housing: House Do you presently have visiting nurse or other home services: No Alcohol intake: current Alcohol intake frequency: 0-2 drinks per day Patient Tobacco Use Status: Current everyday Tobacco user Cigarettes Per Day: 5 e-Cigarette/Vaping Use: Never Used Second Hand Smoke Exposure: Yes service: No Current occupational status: retired Cognitive needs: No Hearing needs: No Vision needs: No Review of Systems Const All systems reviewed & are unremarkable except as noted in HPI and below Physical Exam Vital Signs: Last Vital Signs Pulse 50 07/17/23 11:35 BP 132/80 07/17/23 11:35 Pulse Ox 93 07/17/23 11:35 Const General: comfortable and no acute distress Nutritional Appearance: obese Orientation/consciousness: patient oriented x3 Limitations: language barrier and ambulation with cane Skin Other: Bilateral lower extremities; Scalet patches of dry skin, white and shedding. General skin exam: dry skin and erythema Neuro General: patient oriented x3, gait normal and moves all extremities Extrem Ankle/foot/toe images: 1. light to dark brown to red, scaly patches, Bilateral lower extremities. Psych Speech and movement: Normal speech and movement present Assessment & Plan Assessment & Plan (1) Diabetic dermopathy: Code(s): E11.628 - Type 2 diabetes mellitus with other skin complications; L98.8 - Other specified disorders of the skin and subcutaneous tissue Plan: - Advised Pt to start taking his DM medications as prescribed by PCP - Will schedule with PCP for further evaluation and management. - This is a chronic issue Coding Level of Care Code Est Pt Level 3 (17111) Diagnoses Diabetic dermopathy E11.628; L98.8 Time Spent (min) 15
[2023-07-17 11:35] VITALS: BP 132/80; PULSE 50; O2SAT 93
== END 2023-07-17 12:35 | disposition home or self-care (01) ==
PROVIDERS: PCP Nurse Practitioner Family; Visit Provider Nurse Practitioner Family
DX: E11.628 Type 2 diabetes mellitus with other skin complications (principal); L98.8 Other specified disorders of the skin and subcutaneous tissue
CPT/HCPCS: 99213